=== PATIENT | female | born 1940 | race Caucasian/White ===

== ENCOUNTER → 2018-02-02 12:13 | Outpatient (CLI) | payer MEDICARE, OTHER, SELFPAY ==
--- NOTE | 2018-02-02 12:22 | DI.MG.S_ITS ---
BILATERAL DIGITAL SCREENING MAMMOGRAM 3D/2D WITH CAD: 02/02/2018 CLINICAL: Routine screening. Comparison is made to exams dated: 09/30/2016 mammogram, 02/27/2015 mammogram, and 06/22/2013 mammogram - [facility]. There are scattered fibroglandular elements in both breasts. Current study was also evaluated with a Computer Aided Detection (CAD) system. No significant masses, calcifications, or other findings are seen in either breast. There has been no significant interval change. IMPRESSION: NEGATIVE There is no mammographic evidence of malignancy. A 1 year screening mammogram is recommended. This exam was interpreted at Station ID: [id number]. NOTE: For mammograms, a report in lay terms will be sent to the patient. Approximately 15% of breast malignancies will not be visualized mammographically. In the management of a palpable breast mass, a negative mammogram must not discourage biopsy of a clinically suspicious lesion. Electronically Signed By: Richard sanon/sia:02/02/2018 16:50:26 letter sent: Normal Exam ACR BI-RADS Category 1: Negative 3341F
== END ==
PROVIDERS: PCP Family Medicine; Visit Provider Family Medicine
DX: Z12.31 Encounter for screening mammogram for malignant neoplasm of breast (principal)
CPT/HCPCS: 77063; 77067

== ENCOUNTER → 2019-02-23 09:40 | Outpatient (CLI) | payer MEDICARE, OTHER, SELFPAY ==
--- NOTE | 2019-02-23 | DI.MG.S_ITS ---
BILATERAL DIGITAL SCREENING MAMMOGRAM 3D/2D WITH CAD: 02/23/2019 CLINICAL: Routine screening. Comparison is made to exams dated: 02/02/2018 mammogram - [facility], 09/30/2016 mammogram, and 02/27/2015 mammogram - [facility]. There are scattered fibroglandular elements in both breasts. Current study was also evaluated with a Computer Aided Detection (CAD) system. There is a stable oval circumscribed mass in the right breast near central to the nipple middle depth that is stable on multiple prior comparison exams dating back to at least 02/27/2015, consistent with benignity. There also are benign vascular calcifications in both breasts. There are mole markers on both breasts. No significant masses, calcifications, or other findings are seen in either breast. There has been no significant interval change. IMPRESSION: There is no mammographic evidence of malignancy. A 1 year screening mammogram is recommended. This exam was interpreted at Station ID: [id number]. NOTE: For mammograms, a report in lay terms will be sent to the patient. Approximately 15% of breast malignancies will not be visualized mammographically. In the management of a palpable breast mass, a negative mammogram must not discourage biopsy of a clinically suspicious lesion. Electronically Signed By: Yoel Villarreal M.D. ecl/:02/23/2019 18:03:39 letter sent: Normal Exam ACR BI-RADS Category 2: Benign Finding(s) 3342F
== END ==
PROVIDERS: PCP Family Medicine; Visit Provider Family Medicine
DX: Z12.31 Encounter for screening mammogram for malignant neoplasm of breast (principal)
CPT/HCPCS: 77063; 77067

== ENCOUNTER → 2020-03-07 12:24 | Outpatient (CLI) | payer MEDICARE, OTHER, SELFPAY ==
--- NOTE | 2020-03-07 | DI.MG.S_ITS ---
BILATERAL DIGITAL SCREENING MAMMOGRAM 3D/2D WITH CAD: 03/07/2020 CLINICAL: Routine screening. Comparison is made to exams dated: 02/23/2019 mammogram, 02/02/2018 mammogram - [facility], 09/30/2016 mammogram, 06/13/2013 mammogram, and 02/27/2015 mammogram - [facility]. There are scattered fibroglandular elements in both breasts. Current study was also evaluated with a Computer Aided Detection (CAD) system. There is a benign mass in the right breast. There also are benign vascular calcifications in both breasts. There are mole markers on both breasts. No significant masses, calcifications, or other findings are seen in either breast. There has been no significant interval change. IMPRESSION: There is no mammographic evidence of malignancy. A 1 year screening mammogram is recommended. This exam was interpreted at Station ID: [id number]. NOTE: For mammograms, a report in lay terms will be sent to the patient. Approximately 15% of breast malignancies will not be visualized mammographically. In the management of a palpable breast mass, a negative mammogram must not discourage biopsy of a clinically suspicious lesion. Electronically Signed By: Martin dempsey/sia:03/07/2020 12:52:25 letter sent: Normal Exam ACR BI-RADS Category 2: Benign Finding(s) 3342F
== END ==
PROVIDERS: PCP Family Medicine; Referring Provider Family Medicine; Visit Provider Family Medicine
DX: Z12.31 Encounter for screening mammogram for malignant neoplasm of breast (principal)
CPT/HCPCS: 77063; 77067

== ENCOUNTER → 2021-03-13 10:59 | Outpatient (CLI) | payer MEDICARE, OTHER, SELFPAY ==
--- NOTE | 2021-03-13 | DI.MG.S_ITS ---
BILATERAL DIGITAL SCREENING MAMMOGRAM 3D/2D WITH CAD: 03/13/2021 CLINICAL: Routine screening. Comparison is made to exams dated: 03/07/2020 mammogram, 02/23/2019 mammogram, and 02/02/2018 mammogram - [facility]. There are scattered fibroglandular elements in both breasts. Current study was also evaluated with a Computer Aided Detection (CAD) system. There is a benign mass in the right breast. There also are benign vascular calcifications in both breasts. There are mole markers on both breasts. No significant masses, calcifications, or other findings are seen in either breast. There has been no significant interval change. IMPRESSION: BENIGN There is no mammographic evidence of malignancy. A 1 year screening mammogram is recommended. This exam was interpreted at Station ID: [id number]. NOTE: For mammograms, a report in lay terms will be sent to the patient. Approximately 15% of breast malignancies will not be visualized mammographically. In the management of a palpable breast mass, a negative mammogram must not discourage biopsy of a clinically suspicious lesion. Electronically Signed By: Vern Casillas M.D., jr/sia:03/13/2021 11:45:52 letter sent: Normal Exam ACR BI-RADS Category 2: Benign Finding(s) 3342F
== END ==
PROVIDERS: PCP Family Medicine; Referring Provider Family Medicine; Visit Provider Family Medicine
DX: Z12.31 Encounter for screening mammogram for malignant neoplasm of breast (principal)
CPT/HCPCS: 77063; 77067

== ENCOUNTER → 2022-04-08 13:07 | Outpatient (CLI) | payer MEDICARE, OTHER, SELFPAY ==
--- NOTE | 2022-04-08 | DI.MG.S_ITS ---
BILATERAL DIGITAL SCREENING MAMMOGRAM 3D/2D WITH CAD: 04/08/2022 CLINICAL: Routine screening. Comparison is made to exams dated: 03/13/2021 mammogram, 03/07/2020 mammogram, and 02/23/2019 mammogram - [facility]. There are scattered fibroglandular elements in both breasts. Current study was also evaluated with a Computer Aided Detection (CAD) system. There is a benign mass in the right breast. There also are benign vascular calcifications in both breasts. There are mole markers on both breasts. No significant masses, calcifications, or other findings are seen in either breast. There has been no significant interval change. IMPRESSION: BENIGN There is no mammographic evidence of malignancy. A 1 year screening mammogram is recommended. Based on the Tyrer Cuzick model (a risk assessment model) the patient's lifetime risk is 2.0% and her 10 year risk is 0.0%. According to the ACR, ACS, and NCCN guidelines, an annual breast MRI exam along with mammogram is recommended if the patient's lifetime risk is 20% or greater. This exam was interpreted at Station ID: [id number]. NOTE: For mammograms, a report in lay terms will be sent to the patient. Approximately 15% of breast malignancies will not be visualized mammographically. In the management of a palpable breast mass, a negative mammogram must not discourage biopsy of a clinically suspicious lesion. Electronically Signed By: Vern Casillas M.D., jr/sia:04/08/2022 15:19:16 letter sent: Normal Exam ACR BI-RADS Category 2: Benign Finding(s) 3342F
== END ==
PROVIDERS: PCP Nurse Practitioner Family; Referring Provider Nurse Practitioner Family; Visit Provider Family Medicine
DX: Z12.31 Encounter for screening mammogram for malignant neoplasm of breast (principal)
CPT/HCPCS: 77063; 77067

== ENCOUNTER 2022-07-13 18:09 | Inpatient (IN) | payer MEDICARE, OTHER, SELFPAY ==
[2022-07-13] VITALS (12 sets, daily range): BP systolic 175–209; BP diastolic 79–90; PULSE 57–95; RESP 14–22; TEMP 36.6–36.7; O2SAT 95–99; BMI 28.0; BMI 26.6
--- NOTE | 2022-07-13 18:26 | DI.RAD.S_ITS ---
PROCEDURE: XR HIP W PEL IF DONE RT 2V INDICATIONS: fall with pain TECHNIQUE: AP pelvis with lateral view(s) of the right hip(s). COMPARISON: None. FINDINGS: Bones: Lucency at the right femoral neck. No dislocations. Advanced degenerative change at both hips. Pelvic ring appears intact. No suspicious bony lesions. Degenerative change at the lumbar spine and pubic symphysis. Soft tissues: The visualized bowel gas pattern is normal. No suspicious soft tissue calcifications. Generator device at the right buttocks. IMPRESSION: Right femoral neck fracture. Dictated by: Martin Lindsey M.D. on 07/13/2022 at 19:35 Approved by: Martin Lindsey M.D. on 07/13/2022 at 19:37
[2022-07-13] MEDS: MORPHINE 4 MG/ML INJ IV (18:40)
--- NOTE | 2022-07-13 18:57 | PC.NURSE ---
left ac US guided iv placed by Palak brewer, labs drawn, secured with dsg.
--- NOTE | 2022-07-13 19:16 | PC.NURSE ---
urine collected and sent to lab with casanova catheter placement labs and blood banding done with us guided iv rapid covid swab collected and sent to lab all to be available pending md assessment and xray results.
[2022-07-13 19:26] LABS: BUN Creatinine Ratio 26.3 (6-22); Blood Urea Nitrogen 75 mg/dL (7-17); Calcium 8.5 mg/dL (8.4-10.2); Carbon Dioxide 28 mmol/L (22-32); Chloride 95 mmol/L (98-107); Estimated Glomerular Filt Rate 16 mL/min (>60); Glucose 123 mg/dL (80-110); HEMOLYSIS < 15 (0-50); Potassium 4.2 mmol/L (3.4-5.1); Sodium 135 mmol/L (137-145)
[2022-07-13 19:27] LABS: Add Manual Diff / Slide Review NO; Basophils Absolute Auto 0 /uL (0-100); Basophils Percent Auto 0.2 % (0-2); Eosinophils Absolute Auto 200 /uL (0-450); Eosinophils Percent Auto 4.8 % (2-4); Hematocrit 33.1 % (36-46); Hemoglobin 11.4 g/dL (12.0-16.0); Lymphocytes Absolute Auto 600 /uL (1100-4500); Lymphocytes Percent Auto 14.2 % (25-40); Mean Corpuscular HGB Conc 34.3 % (30-36); Mean Corpuscular Hemoglobin 30.8 PG (26-34); Mean Corpuscular Volume 89.9 fL (80-100); Monocytes Absolute Auto 400 /uL (0-900); Monocytes Percent Auto 8.8 % (3-14); Neutrophils Absolute Auto 3200 /uL (1500-7000); Platelet Count 164 X10^3/uL (150-400); Red Blood Cell Count 3.69 X10^6/uL (4.0-5.2); Red Cell Distribution Width 12.7 % (11.6-14.8); White Blood Cell Count 4.5 X10^3/uL (4.5-11.0)
[2022-07-13] MEDS: diazePAM 10 MG/2 ML SYRINGE 2 MG IV (19:38)
[2022-07-13] MEDS: SODIUM CHLORIDE 0.9% 1,000 ML 100 ML IV (19:38)
--- NOTE | 2022-07-13 19:50 | ED.GENADULT ---
HPI - General Adult General Chief complaint: Trauma Stated complaint: GLF- ? right hip fx Time Seen by Provider: 07/13/22 18:26 Source: patient and EMS Mode of arrival: EMS Limitations: no limitations History of Present Illness HPI narrative: 81-year-old female brought in by EMS for evaluation of right hip pain. Earlier today she fell landing on her right hip. She reports right hip and right knee pain. Did not hit her head. This was a mechanical fall. Not on anticoagulation. Was unable to get up afterwards. EMS was called. She does live on [address]. She arrived by air ambulance. She received intranasal fentanyl secondary to inability to start an IV. Related Data Home Medications Medication Instructions Recorded Confirmed allopurinol 100 mg tablet 100 mg PO DAILY 07/13/22 07/13/22 brimonidine 0.2 % eye drops 1 drp EYE-BOTH BID 07/13/22 07/13/22 calcitriol 0.25 mcg capsule 0.25 mcg PO DAILY 07/13/22 07/13/22 carvedilol 25 mg tablet 25 mg PO BID 07/13/22 07/13/22 dorzolamide 2 % eye drops 1 drp EYE-BOTH BID 07/13/22 07/13/22 furosemide 20 mg tablet 40 mg PO DAILY 07/13/22 07/13/22 latanoprost 0.005 % eye drops 1 drp EYE-BOTH BEDTIME 07/13/22 07/13/22 loperamide 2 mg capsule 2 mg PO Q6H PRN Diarrhea 07/13/22 07/13/22 losartan 50 mg tablet 50 mg PO DAILY 07/13/22 07/13/22 simvastatin 40 mg tablet 40 mg PO DAILY 07/13/22 07/13/22 sitagliptin 25 mg tablet (Januvia) 25 mg PO DAILY 07/13/22 07/13/22 Allergies Allergy/AdvReac Type Severity Reaction Status Date / Time Penicillins Allergy Verified 07/13/22 18:49 Sulfa (Sulfonamide Allergy rash Verified 11/16/18 14:35 Antibiotics) vancomycin Allergy Hives Verified 07/13/22 21:59 Review of Systems Constitutional Constitutional: Reports system reviewed and no additional complaints, except as documented Cardiovascular Comments: Denies chest pain Respiratory Comments: Denies shortness of breath Gastrointestinal Comments: Denies abdominal pain Musculoskeletal Comments: Right hip pain right knee pain Neurologic Comments: No headache Hematologic/Lymphatic On Anticoagulants: No Patient History Medical History (Updated 07/13/22 @ 23:16 by Feliciano Shepard DO) Chronic kidney disease Diabetes Sleep apnea Social History household members: none Smoking Status: Never smoker alcohol intake: never Smoking Status: Never smoker Substance Use Type: does not use Exam Initial Vital Signs Initial Vital Signs: Vital Signs Temperature 98 F 07/13/22 18:10 Pulse Rate 60 07/13/22 18:10 Respiratory Rate 18 07/13/22 18:10 Blood Pressure 177/88 H 07/13/22 18:10 Pulse Oximetry 97 07/13/22 18:10 Oxygen Delivery Method 07/13/22 18:10 Const General: cooperative and No ill appearing HENMT Head: normal to inspection and normocephalic Resp Effort & Inspection: normal respiratory effort Auscultation: clear to auscultation bilaterally Cardio Rate: regular rate Rhythm: regular rhythm GI Inspection: normal to inspection Palpation: soft, No firm and No tender Back/Spine/Pelvis Cervical Spine: No cervical spinal tenderness Skin General: no rashes or lesions noted Neuro General: patient alert and patient awake Sensory Exam: no sensory deficits noted Extrem Other: Upper extremities are unremarkable. Does have tenderness to palpation of the right hemipelvis and also tenderness to palpation and movement of the right knee. Left lower extremity unremarkable. Right ankle is unremarkable. Scores GCS [place] coma scale eye opening: Spontaneous [place] coma scale verbal response: Orientated [place] coma scale motor response: Obey commands [place] coma scale total score: 15 Nexus Score for C-Spine Focal Neurologic deficit present: No Midline spinal tenderness present: No Altered level of conciousness present: No Intoxication present: No Distracting Injury Present: No Nexus Criteria for C-spine: 0 Course Orders Ordered: ED Orders 07/13/22 18:14 COVID19 -Nasal RAPID/Pre-Proc Stat 07/13/22 18:26 XR hip w pel if done RT 2V Stat 07/13/22 18:27 Basic Metabolic Panel Stat Complete Blood Count AUTO DIFF Stat 07/13/22 19:51 XR knee RT 1to2V Stat 07/13/22 20:45 Consult to Orthopedic Surgery Stat Acetaminophen (Acetaminophen 325 Mg Tablet) 650 mg PO Q6H PRN PRN Reason: Fever/Mild Pain (1-3) Dextrose (Dextrose 50 % In Water 25 Gm/50 Ml Syringe) 25 gm IV PRN PRN PRN Reason: Hypoglycemia Diclofenac Sodium (Diclofenac 1% Gel 100 Gm) 1 applic TOP QID PRN PRN Reason: Pain, Mild (1-10 Sodium Chloride (Normal Saline 0.9%) 1,000 mls @ 100 mls/hr IV CONT [facility] Last Infusion: 07/13/22 22:08 Dose: 0 mls/hr Documented By: Infusion: 07/13/22 21:53 Dose: 100 mls/hr Documented By: Infusion: 07/13/22 21:34 Dose: 0 mls/hr Documented By: Admin: 07/13/22 19:38 Dose: 100 mls/hr Documented By: AP Dextrose/Sodium Chloride (Dextrose 5%-0.9% Ns) 1,000 mls @ 80 mls/hr IV CONT [facility] Last Admin: 07/13/22 22:07 Dose: 80 mls/hr Documented By: OW Insulin Human Lispro (Insulin Lispro 100 Unit/Ml 3ml Vial) 0 unit SUBCUT ACHS [facility]; Protocol Lidocaine (Lidocaine Patch 1 Each Adh..Patch) 1 each TOP DAILY PRN PRN Reason: Pain, Mild (1-10 Morphine Sulfate (Morphine 2 Mg/Ml Inj) 2 mg IV Q4HR PRN PRN Reason: Pain, Moderate (4-)10 Last Admin: 07/13/22 22:07 Dose: 2 mg Documented By: OW Naloxone HCl (Naloxone 0.4 Mg/Ml Vial) 0.2 mg IV Q2MIN PRN PRN Reason: Opiate Reversal Non-Formulary Medication (Carvedilol) 12.5 mg PO DAILY [facility] Non-Formulary Medication (Losartan) 50 mg PO DAILY [facility] Ondansetron HCl (Ondansetron 4 Mg/2 Ml Inj) 4 mg IV Q6HR PRN PRN Reason: Nausea And Vomiting Sennosides (Sennosides 8.6 Mg Tablet) 17.2 mg PO BEDTIME [facility] Last Admin: 07/13/22 22:07 Dose: 17.2 mg Documented By: OW Discontinued Medications Carvedilol (Carvedilol 12.5 Mg Tablet) 12.5 mg PO NOW ONE Stop: 07/13/22 21:40 Last Admin: 07/13/22 22:06 Dose: 12.5 mg Documented By: JANNET Diazepam (Diazepam 10 Mg/2 Ml Syringe) 2 mg IV NOW ONE Stop: 07/13/22 19:29 Last Admin: 07/13/22 19:38 Dose: 2 mg Documented By: SAMY Morphine Sulfate (Morphine 4 Mg/Ml Inj) 4 mg IV NOW ONE Stop: 07/13/22 18:27 Last Admin: 07/13/22 18:40 Dose: 4 mg Documented By: KENZIE Vital Signs Vital signs: Vital Signs - 8 hr 07/13/22 18:10 07/13/22 18:15 07/13/22 18:18 Temperature 98 F Pulse Rate 60 61 Respiratory Rate 18 14 Blood Pressure 177/88 H 177/88 H Pulse Oximetry 97 Oxygen Delivery Method Room Air 07/13/22 18:18 07/13/22 18:30 07/13/22 18:30 Temperature Pulse Rate 60 58 L Respiratory Rate 20 21 Blood Pressure 188/79 H Pulse Oximetry 97 97 Oxygen Delivery Method 07/13/22 19:10 07/13/22 19:30 07/13/22 20:00 Temperature Pulse Rate 63 57 L 57 L Respiratory Rate 22 20 19 Blood Pressure Pulse Oximetry 98 96 97 Oxygen Delivery Method Room Air 07/13/22 20:16 07/13/22 20:16 07/13/22 20:30 Temperature Pulse Rate 62 Respiratory Rate 22 Blood Pressure 189/86 H 175/84 H Pulse Oximetry 97 Oxygen Delivery Method 07/13/22 20:30 Temperature Pulse Rate 59 L Respiratory Rate 17 Blood Pressure Pulse Oximetry 99 Oxygen Delivery Method Medical Decision Making Lab Data Lab results reviewed: Yes I reviewed the patient's lab results. Result diagrams: 07/13/22 18:27 07/13/22 18:27 Labs: Lab Results 07/13/22 07/13/22 07/13/22 Range/Units 18:14 18:27 18:27 WBC 4.5 (4.5-11.0) X10^3/uL RBC 3.69 L (4.0-5.2) X10^6/uL Hgb 11.4 L (12.0-16.0) g/dL Hct 33.1 L (36-46) % MCV 89.9 (80-100) fL MCH 30.8 (26-34) PG MCHC 34.3 (30-36) % RDW 12.7 (11.6-14.8) % Plt Count 164 (150-400) X10^3/uL Neut % (Auto) 72.0 (50-75) % Lymph % (Auto) 14.2 L (25-40) % [place] % (Auto) 8.8 (3-14) % Eos % (Auto) 4.8 H (2-4) % Baso % (Auto) 0.2 (0-2) % Neut # (Auto) 3200 (1760-8517) /uL Lymph # (Auto) 600 L (8410-6220) /uL [place] # (Auto) 400 (0-900) /uL Eos # (Auto) 200 (0-450) /uL Baso # (Auto) 0 (0-100) /uL Sodium 135 L (137-145) mmol/L Potassium 4.2 (3.4-5.1) mmol/L Chloride 95 L (98-107) mmol/L Carbon Dioxide 28 (22-32) mmol/L BUN 75 H (7-17) mg/dL Creatinine 2.85 H (0.52-1.04) mg/dL Estimated GFR 16 L (>60) mL/min BUN/Creatinine Ratio 26.3 H (6-22) Glucose 123 H (80-110) mg/dL Hemoglobin A1c (4.0-6.0) % Calcium 8.5 (8.4-10.2) mg/dL Magnesium (1.6-2.3) mg/dL SARS-CoV-2 (PCR) Negative (Negative) 07/13/22 07/13/22 Range/Units 18:27 18:27 WBC (4.5-11.0) X10^3/uL RBC (4.0-5.2) X10^6/uL Hgb (12.0-16.0) g/dL Hct (36-46) % MCV (80-100) fL MCH (26-34) PG MCHC (30-36) % RDW (11.6-14.8) % Plt Count (150-400) X10^3/uL Neut % (Auto) (50-75) % Lymph % (Auto) (25-40) % [place] % (Auto) (3-14) % Eos % (Auto) (2-4) % Baso % (Auto) (0-2) % Neut # (Auto) (9115-8162) /uL Lymph # (Auto) (2356-5916) /uL [place] # (Auto) (0-900) /uL Eos # (Auto) (0-450) /uL Baso # (Auto) (0-100) /uL Sodium (137-145) mmol/L Potassium (3.4-5.1) mmol/L Chloride (98-107) mmol/L Carbon Dioxide (22-32) mmol/L BUN (7-17) mg/dL Creatinine (0.52-1.04) mg/dL Estimated GFR (>60) mL/min BUN/Creatinine Ratio (6-22) Glucose (80-110) mg/dL Hemoglobin A1c 7.7 H (4.0-6.0) % Calcium (8.4-10.2) mg/dL Magnesium 2.8 H (1.6-2.3) mg/dL SARS-CoV-2 (PCR) (Negative) Point of Care Testing Glucose POC 125 Point of care testing: Point of Care Testing Glucose POC 125 Imaging Data Extremity x-ray #1: Radiologist's Impression: Radha Earl??81??F??1940 ? Allergy/Adv: Penicillins, Sulfa (Sulfonamide Antibiotics), vancomycin (More??) Close Knee X-Ray (Signed) Haider Redding - 07/13/22 Hip X-Ray (Signed) Call,Martin - 07/13/22 Mammogram Screening (Signed) Vern Casillas - 04/08/22 Mammogram Screening (Signed) Vern Casillas - 03/13/21 Mammogram Screening (Signed) CallMartin - 03/07/20 Mammogram Screening (Signed) Yoel Villarreal - 02/23/19 Mammogram Screening (Signed) John Lopez - 02/02/18 Launch?[address] [address] XRay Report Signed Patient: Radha Earl MR#: [id number] : 1940 Acct:[id number] Age/Sex: 81 / F Date of Service: 07/13/22 Loc: ED Accession Number: [id number] ?? Procedure: XR hip w pel if done RT 2V Ordering Provider: Feliciano Shepard D.O. PROCEDURE:? XR HIP W PEL IF DONE RT 2V ? INDICATIONS:? fall with pain ? TECHNIQUE:? AP pelvis with lateral view(s) of the right hip(s).? ? COMPARISON:? None. ? FINDINGS:? ? Bones:? Lucency at the right femoral neck.? No dislocations.? Advanced degenerative change at both hips.? Pelvic ring appears intact.? No suspicious bony lesions.? Degenerative change at the lumbar spine and pubic symphysis. ? Soft tissues:? The visualized bowel gas pattern is normal.? No suspicious soft tissue calcifications.? Generator device at the right buttocks. ? ? IMPRESSION:? Right femoral neck fracture. ? ? ? Dictated by: Martin Lindsey M.D. on 07/13/2022 at 19:35 ? ? Approved by: Martin Lindsey M.D. on 07/13/2022 at 19:37?? Extremity x-ray #2: Radiologist's Impression: [place] [address] XRay Report Signed Patient: Radha Earl MR#: [id number] : 1940 Acct:[id number] Age/Sex: 81 / F Date of Service: 07/13/22 Loc: 215-1 Accession Number: [id number] ?? Procedure: XR knee RT 1to2V Ordering Provider: Feliciano Shepard D.O. PROCEDURE:? XR KNEE RT 1TO2V ? INDICATIONS:? Two-view right knee, pain after fall ? TECHNIQUE:? 2 views of the knee were acquired.? ? COMPARISON:? None. ? FINDINGS:? ? Bones:? No fractures or dislocations.? There is mild joint space narrowing in the medial compartment.? No suspicious bony lesions.? ? Soft tissues:? No joint effusion.? No suspicious soft tissue calcifications.? ? IMPRESSION:? ? 1. No fracture or dislocation.? ? ? Dictated by: Haider Redding M.D. on 07/13/2022 at 21:54 ? ? Approved by: Haider Redding M.D. on 07/13/2022 at 21:54 MDM Narrative Medical decision making narrative: Mechanical fall, not on anticoagulation. Has a right femoral neck fracture. Her right knee shows no fractures nor dislocations. No other injuries reported from the patient nor found on the exam. Discussed the case with Dr. Lizarraga on-call with orthopedic surgery who will see the patient upon admission. Discussed the admission with ORALIA Silva the [facility] provider. Discussed the need for admission with the patient. She expressed understanding and agreement. Discharge Plan Departure Patient Disposition: Admitted As Inpatient Clinical Impression: Fracture of femoral neck, right, Chronic kidney disease Admit Date/Time: 07/13/22 20:57 Admit Provider: Nidia Silva
--- NOTE | 2022-07-13 19:51 | DI.RAD.S_ITS ---
PROCEDURE: XR KNEE RT 1TO2V INDICATIONS: Two-view right knee, pain after fall TECHNIQUE: 2 views of the knee were acquired. COMPARISON: None. FINDINGS: Bones: No fractures or dislocations. There is mild joint space narrowing in the medial compartment. No suspicious bony lesions. Soft tissues: No joint effusion. No suspicious soft tissue calcifications. IMPRESSION: 1. No fracture or dislocation. Dictated by: Haider Redding M.D. on 07/13/2022 at 21:54 Approved by: Haider Redding M.D. on 07/13/2022 at 21:54
[2022-07-13 20:40] LABS: COVID19 -Nasal RAPID Negative (Negative)
[2022-07-13 21:34] LABS: Magnesium 2.8 mg/dL (1.6-2.3)
[2022-07-13] MEDS: carvediloL 12.5 MG TABLET PO (22:06)
[2022-07-13] MEDS: DEXTROSE 5%-0.9% NS 1,000 ML 80 ML IV (22:07)
[2022-07-13] MEDS: MORPHINE 2 MG/ML INJ IV (22:07)
[2022-07-13] MEDS: SENNOSIDES 8.6 MG TABLET 17.2 MG PO (22:07)
[2022-07-13 22:16] LABS: Hemoglobin A1C% w Est Avg Glu 7.7 % (4.0-6.0)
[2022-07-13 22:38] LABS: Appearance Urine UA CLEAR; Bilirubin Urine UA NEGATIVE (NEGATIVE); Color Urine UA YELLOW; Glucose Urine UA NEGATIVE (Negative); Ketones Urine UA NEGATIVE (NEGATIVE); Leukocyte Esterase Urine UA 2+ (NEGATIVE); Nitrite Urine UA POSITIVE (Negative); Occult Blood Urine UA TRACE-INTACT (Negative); Protein Urine UA 1+ (Negative); Urobilinogen Urine UA 0.2 E.U./dL (0.2)
[2022-07-13 22:54] LABS: Bacteria Urine Many (>30); RBC Urine None Seen (0-5/HPF); WBC Urine 10-30/HPF (0-5/HPF)
[2022-07-13 22:55] LABS: Culture Indicated Urine Specimen Cultured
[2022-07-14] VITALS (20 sets, daily range): BP systolic 121–185; BP diastolic 61–102; PULSE 61–95; RESP 10–20; TEMP 36.2–37.2; O2SAT 93–99; BMI 26.6
--- NOTE | 2022-07-14 | DI.RAD.S_ITS ---
PROCEDURE: XR HIP W PEL IF DONE RT 2V INDICATIONS: OR TECHNIQUE: 2 intraoperative views of the hip were acquired. COMPARISON: [facility], CR, XR HIP W PEL IF DONE RT 2V, 07/13/2022, 18:59. FINDINGS: 3 right femoral neck screws project in the expected location. There is decreased conspicuity of the femoral neck fracture. IMPRESSION: Intraoperative guidance provided. Dictated by: Martin Lindsey M.D. on 07/15/2022 at 8:31 Approved by: Martin Lindsey M.D. on 07/15/2022 at 8:32
[2022-07-14] MEDS: MORPHINE 2 MG/ML INJ IV ×4 (01:00→13:16)
--- NOTE | 2022-07-14 01:02 | P.HP_ITS ---
History of Present Illness History of Present Illness Date Patient Seen: 07/13/22 Time Patient Seen: 21:23 Chief complaint: GLF- ? right hip fx Narrative: Radha Earl is a 81-year-old female with a history of essential hypertension, hypertensive nephrosclerosis, CKD G4/A1, with mineral bone disease, insomnia, iron deficiency anemia of CKD, hyperuremicemia, ZINA with CPAP, history of MRSA, bowel incontinence with InterStim neurostimulator implanted, who presented to the ED today after getting up out of a chair finding that her legs had fallen asleep and collapsed to the floor falling impacting her right knee and hip resulting in a right femoral neck fracture. Patient is on no anticoagulation therapy. Patient denies hitting her head or loss of consciousness with fall, headache, changes in vision, weakness, numbness, tingling, chest pain, shortness breath, abdominal pain, nausea, vomiting, fever, body aches, chills, urinary frequency, urgency, dysuria, frequent falls, skin wounds or infections, recent changes to her medication, recent illness injury or trauma that otherwise stated above. Admit vitals temp 98?, BP 189/86, HR 62, R 22, O2 saturation 97% on room air. Patient HGB 11.4, HCT 33.1, sodium 135, chloride 95, BUN 75, creatinine 2.85, g lucose 123, GFR 16, (review of nephrology notes show baseline creatinine 2.34, GFR 19), patient's liver panel WNL, COVID is negative, right knee x-ray is negative for any acute processes or fracture, right hip x-ray demonstrates right femoral neck fracture. Dr. Lizarraga was consulted in ED. Patient admitted for right femoral neck fracture. Patient History Medical History (Updated 07/14/22 @ 01:14 by ALEXIS Huff) Anemia in CKD (chronic kidney disease) Chronic kidney disease Chronic kidney disease (CKD) stage G4/A1, severely decreased glomerular filtration rate (GFR) between 15-29 mL/min/1.73 square meter and albuminuria creatinine ratio less than 30 mg/g Diabetes Essential hypertension Gastric neurostimulator device in situ Hearing aid worn History of MRSA infection Hypertensive nephrosclerosis Hyperuricemia Insomnia Iron deficiency anemia Obstructive sleep apnea on CPAP Sleep apnea Surgical History History of colon surgery History of myringotomy History of tonsillectomy Family & Social History Family History Father CKD (chronic kidney disease) Mother Hypertension Social History: household members none lives alone & is retired Prior Living Arrangements Apartment/Condo Safety & Behavioral: Feels Safe in Current Yes Environment Been Physically Hurt or No Threatened By a Person Tobacco & Substance use: Smoking Status Never smoker alcohol intake never Substance Use Type does not use Meds Home Medications and Allergies Home Medications Medication Instructions Recorded Confirmed Type allopurinol 100 mg tablet 100 mg PO DAILY 07/13/22 07/13/22 History brimonidine 0.2 % eye drops 1 drp EYE-BOTH BID 07/13/22 07/13/22 History calcitriol 0.25 mcg capsule 0.25 mcg PO DAILY 07/13/22 07/13/22 History carvedilol 25 mg tablet 25 mg PO BID 07/13/22 07/13/22 History dorzolamide 2 % eye drops 1 drp EYE-BOTH BID 07/13/22 07/13/22 History furosemide 20 mg tablet 40 mg PO DAILY 07/13/22 07/13/22 History latanoprost 0.005 % eye drops 1 drp EYE-BOTH BEDTIME 07/13/22 07/13/22 History loperamide 2 mg capsule 2 mg PO Q6H PRN Diarrhea 07/13/22 07/13/22 History losartan 50 mg tablet 50 mg PO DAILY 07/13/22 07/13/22 History simvastatin 40 mg tablet 40 mg PO DAILY 07/13/22 07/13/22 History sitagliptin 25 mg tablet (Januvia) 25 mg PO DAILY 07/13/22 07/13/22 History Allergies Allergy/AdvReac Type Severity Reaction Status Date / Time Penicillins Allergy Verified 07/13/22 18:49 Sulfa (Sulfonamide Allergy rash Verified 11/16/18 14:35 Antibiotics) vancomycin Allergy Hives Verified 07/13/22 21:59 Review of Systems Review of Systems Narrative: All 12 point systems reviewed with the patient and are negative except otherwise documented. Exam Vital Signs (past 8 hours): - 07/13/22 18:10 07/13/22 18:15 07/13/22 18:18 Temperature 98 F Pulse Rate 60 61 Respiratory Rate 18 14 Blood Pressure 177/88 H 177/88 H Pulse Oximetry 97 Oxygen Delivery Method Room Air Oxygen Flow Rate 07/13/22 18:18 07/13/22 18:30 07/13/22 18:30 Temperature Pulse Rate 60 58 L Respiratory Rate 20 21 Blood Pressure 188/79 H Pulse Oximetry 97 97 Oxygen Delivery Method Oxygen Flow Rate 07/13/22 19:10 07/13/22 19:30 07/13/22 20:00 Temperature Pulse Rate 63 57 L 57 L Respiratory Rate 22 20 19 Blood Pressure Pulse Oximetry 98 96 97 Oxygen Delivery Method Room Air Oxygen Flow Rate 07/13/22 20:16 07/13/22 20:16 07/13/22 20:30 Temperature Pulse Rate 62 Respiratory Rate 22 Blood Pressure 189/86 H 175/84 H Pulse Oximetry 97 Oxygen Delivery Method Oxygen Flow Rate 07/13/22 20:30 07/13/22 21:00 07/13/22 21:00 Temperature Pulse Rate 59 L 61 Respiratory Rate 17 15 Blood Pressure 209/90 H Pulse Oximetry 99 95 Oxygen Delivery Method Oxygen Flow Rate 07/13/22 21:35 07/13/22 22:06 07/13/22 21:30 Temperature 98.1 F Pulse Rate 71 95 H Respiratory Rate 18 Blood Pressure 183/85 H 183/85 H Pulse Oximetry 95 Oxygen Delivery Method Room Air Oxygen Flow Rate 0 Oxygen Delivery Method Room Air Oxygen Flow Rate 0 Narrative Exam Narrative: General: Patient is a well-developed, well-nourished elderly female in no distress at this time.pain well controlled. HEENT: Normocephalic, atraumatic, extraocular muscles intact, oral pharynx is clear and mucous membranes are moist. Neck is supple and symmetric, trachea is midline, no adenopathy, no thyroid enlargement, nontender, no masses palpated. Negative for JVD Chest: Normal AP diameter and contour without kyphoscoliosis, no nasal flaring, retractions, or tachypneic labored Lungs: Auscultation of all lung lombardo are clear without adventitious sounds, wheezes, rhonchi, or rales. Cardio: S1 & S2 with regular rate and rhythm without murmur, rubs, or gallops, no carotid bruit, no cardiac pulsations present. Abdomen: Soft nontender, negative for organomegaly, or masses. Bowel sounds are present in all 4 quadrants without guarding or rebound, no CVA tenderness. Musculoskeletal: Left leg appears longer than right, No effusions, cyanosis, clubbing or edema present. intact radial and pedal pulses are normal. Skin: Warm dry and intact without rashes, ulcerations or petechiae. Neuro: Alert and orientated x3, strength is +5/5 in all extremities, sensation to touch intact, no gross deficits noted of cranial nerves. Psych: Patient has a well-kept appearance, appropriate affect, mental status attitude thought context and judgment are appropriate for age. Objective Labs Result Diagrams: 07/13/22 18:27 07/13/22 18:27 Labs: Laboratory Results - last 24 hr 07/13/22 07/13/22 07/13/22 18: 18:27 18:27 WBC 4.5 RBC 3.69 L Hgb 11.4 L Hct 33.1 L MCV 89.9 MCH 30.8 MCHC 34.3 RDW 12.7 Plt Count 164 Neut % (Auto) 72.0 Lymph % (Auto) 14.2 L [place] % (Auto) 8.8 Eos % (Auto) 4.8 H Baso % (Auto) 0.2 Neut # (Auto) 3200 Lymph # (Auto) 600 L [place] # (Auto) 400 Eos # (Auto) 200 Baso # (Auto) 0 Sodium 135 L Potassium 4.2 Chloride 95 L Carbon Dioxide 28 BUN 75 H Creatinine 2.85 H Estimated GFR 16 L BUN/Creatinine Ratio 26.3 H Glucose 123 H Hemoglobin A1c Calcium 8.5 Magnesium Urine Color Urine Appearance Urine pH Ur Specific [place] Urine Protein Urine Glucose (UA) Urine Ketones Urine Occult Blood Urine Nitrate Urine Bilirubin Urine Urobilinogen Ur Leukocyte Esterase Urine RBC Urine WBC Urine Bacteria Ur Culture Indicated? Nasal Screen MRSA (PCR) SARS-CoV-2 (PCR) Negative 07/13/22 07/13/22 07/13/22 18: 18:27 21:55 WBC RBC Hgb Hct MCV MCH MCHC RDW Plt Count Neut % (Auto) Lymph % (Auto) [place] % (Auto) Eos % (Auto) Baso % (Auto) Neut # (Auto) Lymph # (Auto) [place] # (Auto) Eos # (Auto) Baso # (Auto) Sodium Potassium Chloride Carbon Dioxide BUN Creatinine Estimated GFR BUN/Creatinine Ratio Glucose Hemoglobin A1c 7.7 H Calcium Magnesium 2.8 H Urine Color Yellow Urine Appearance Clear Urine pH 6.0 Ur Specific [place] 1.010 Urine Protein 1+ H Urine Glucose (UA) Negative Urine Ketones Negative Urine Occult Blood Trace-intact Urine Nitrate Positive H Urine Bilirubin Negative Urine Urobilinogen 0.2 Ur Leukocyte Esterase 2+ H Urine RBC None seen Urine WBC 10-30/hpf H Urine Bacteria Many (>30) H Ur Culture Indicated? Specimen cultured Nasal Screen MRSA (PCR) SARS-CoV-2 (PCR) 07/13/22 22:20 WBC RBC Hgb Hct MCV MCH MCHC RDW Plt Count Neut % (Auto) Lymph % (Auto) [place] % (Auto) Eos % (Auto) Baso % (Auto) Neut # (Auto) Lymph # (Auto) [place] # (Auto) Eos # (Auto) Baso # (Auto) Sodium Potassium Chloride Carbon Dioxide BUN Creatinine Estimated GFR BUN/Creatinine Ratio Glucose Hemoglobin A1c Calcium Magnesium Urine Color Urine Appearance Urine pH Ur Specific [place] Urine Protein Urine Glucose (UA) Urine Ketones Urine Occult Blood Urine Nitrate Urine Bilirubin Urine Urobilinogen Ur Leukocyte Esterase Urine RBC Urine WBC Urine Bacteria Ur Culture Indicated? Nasal Screen MRSA (PCR) Positive for mrsa H SARS-CoV-2 (PCR) Assessment & Plan Assessment & Plan narrative: Radha Earl is a 81-year-old female with a history of essential hypertension, hypertensive nephrosclerosis, CKD G4/A1, with mineral bone disease, insomnia, iron deficiency anemia of CKD, hyperuremicemia, ZINA with CPAP, history of MRSA, bowel incontinence with InterStim neurostimulator implanted. This patient re quires inpatient hospitalization for a right femoral neck fracture, following a ground level fall requiring surgical intervention. Consult Dr. Gramajo Nephrology tomorrow to evaluate patient's renal function in regards to fitness for surgical intervention, as we have no dialysis capabilities here at [facility] if required. The patient is at much higher risk for medical and surgical complications because of her complex medical history listed above. These factors increase the difficulty and complexity of medical and surgical interventions and increases the chances of poor outcomes such as morbidity and mortality, as well as complications such as renal failure requiring dialysis. 1. Ground level fall resulting in a pathologic right femoral neck fracture, acute, present on admission -Right knee x-ray is negative -Right hip x-ray demonstrates right femoral neck fracture -patient has mineral bone disease secondary to CKD G4/A1 -NPO after midnight-with the exception patient may take her blood pressure medications in the morning with a sip of water. -pain control: IV morphine, ice, Voltaren, lidocaine patch as needed -D5 normal saline at 80 cc/HR -blood sugar checks q.6 hours while NPO -MRSA ordered -Hx of MRSA -Consult Dr. Lizarraga & Dr. Gramajo neph 2. Essential hypertension, uncontrolled, acute on chronic, in the setting of hypertensive nephrosclerosis and DONNIE, chronic, present on admission -admitBP 189/86 -continue carvedilol, losartan -hold Lasix 3. Iron-deficiency anemia of CKD, acute on chronic, present on admission -HGB 11.4, HCT 33.1-trend hematology labs, monitor for bleeding -per nephrology notes baseline hemoglobin 11 -Hold ferrous sulfate 4.Chronic kidney disease G4/A1 with mineral bone disease, chronic, present on admission -sodium 135, chloride 95, BUN 75, creatinine 2.85, glucose 123, GFR 16, Mag 2.8 -review of nephrology notes show baseline creatinine 2.34, GFR 19 -avoid nephrotoxic medications -gentle rehydration D5 NS at 80 cc/HR -after thoroughly reviewing patient's medical history, and reviewing additional labs, I have concerns as to her renal fitness for surgical intervention here at [facility] where we do not have dialysis available if needed. Due to the patients already severe kidney impairment secondary to CKD-her kidney function today is just below her baseline :BUN 75, creatinine 2.85 GFR 16, and her magnesium came back at 2.8. Patients with advanced CKD and GFR< 15 may require dialysis. I am hoping that overnight gentle hydration will at the very least improve her function to baseline, but I have placed a consult with Dr. Gramajo Nephrology-to have him determine if she is cleared to have fracture repair surgery here or if she needs to be moved to a facility with dialysis capabilities. 5. Obstructive sleep apnea with CPAP, chronic, present on admission -respiratory consult, to administer CPAP 6. Hyperuremicemia, chronic, present on admission -holding allopurinol 7. Bowel incontinence, with gastro neurostimulator in place, chronic, present on admission -Holding loperamide 8. [id number] type 2 diabetes, chronic, with hyperlipidemia, chronic, present on admission -patient admitted under diabetic protocol, monitor for hypo and hyperglycemia -low-dose sliding scale, Q 6 VS checks while NPO -post surgery resume a.c. HS, low-dose sliding scale -ordered A1c -holding patient's Januvia -hold simvastatin 9. UTI, acute, present on admission -obtain Bld cultures x2 before starting rocephin -[id number] loading dose then q24HR -Urine cultures pending -D5NS@80cc/hr Code status:Full Surrogate decision maker: Adry Floyd Daughter COVID PCR:Negative DVT/VTE prophylaxis:Hold medication due to surgery, SCD Left Only Disposition: I have utilized all available immediate resources to obtain, update, or review the patient's current medications. I confirmed that the patient's advanced care plan is present, Code status is documented and/or surrogate decision maker is listed in the patient's medical record. I have personally reviewed patient's chart notes from PCP, specialists, [facility], and laboratory, Time Spent With Patient Critical Care time: I spent a total of [] minutes of critical care time on this patient's care today; this time is exclusive of procedural time. Quality VTE Deep Vein Thrombosis/Pulmonary Embolism Present on Admission: No
[2022-07-14] MEDS: cefTRIAXone 2,000 MG in SODIUM CHLORIDE 0.9% 100 ML 200 MG IV (04:10)
--- NOTE | 2022-07-14 04:22 | PC.NURSE ---
Pt is AxOx4, calm and cooperative. Pt admitted to the unit from ER around 2129 with R femur fx. VSS, pt c/o pain and recieved PRN IV Morphine Q4hrs and last one given around 0500. Pt is MRSA positive so contacted precaution initiated. BG-125/195 and pt has D5NS is running 84 ml/hr. Pt uses cpap at night. Obrien is draining clear and yellow urine. Urine test showed bacteria, nitrated and some protein. No other changes. Pt is NPO since mid-night. Continue monitor.
[2022-07-14 04:23] LABS: Add Manual Diff / Slide Review NO; Basophils Absolute Auto 0 /uL (0-100); Basophils Percent Auto 0.1 % (0-2); Eosinophils Absolute Auto 200 /uL (0-450); Eosinophils Percent Auto 2.9 % (2-4); Hematocrit 31.5 % (36-46); Hemoglobin 10.7 g/dL (12.0-16.0); INR 1.1 (0.9-1.3); Lymphocytes Absolute Auto 500 /uL (1100-4500); Lymphocytes Percent Auto 8.8 % (25-40); Mean Corpuscular HGB Conc 33.8 % (30-36); Mean Corpuscular Hemoglobin 30.7 PG (26-34); Mean Corpuscular Volume 90.7 fL (80-100); Monocytes Absolute Auto 500 /uL (0-900); Monocytes Percent Auto 8.4 % (3-14); Neutrophils Absolute Auto 4500 /uL (1500-7000); Neutrophils Percent Auto 79.8 % (50-75); Platelet Count 143 X10^3/uL (150-400); Prothrombin Time 13.1 SECONDS (10.1-12.7); Red Blood Cell Count 3.47 X10^6/uL (4.0-5.2); Red Cell Distribution Width 12.8 % (11.6-14.8); White Blood Cell Count 5.7 X10^3/uL (4.5-11.0)
[2022-07-14 04:28] LABS: Alanine Aminotransferase 32 IU/L (<35); Albumin 3.8 g/dL (3.5-5.0); Albumin Globulin Ratio 1.4 (1.0-2.8); Alkaline Phosphatase 82 U/L (38-126); Aspartate Aminotransferase 31 IU/L (14-36); BUN Creatinine Ratio 26.1 (6-22); Bilirubin Total 0.4 mg/dL (0.2-1.3); Blood Urea Nitrogen 66 mg/dL (7-17); Calcium 8.3 mg/dL (8.4-10.2); Carbon Dioxide 28 mmol/L (22-32); Chloride 100 mmol/L (98-107); Estimated Glomerular Filt Rate 19 mL/min (>60); Globulin 2.7 g/dL (1.7-4.1); Glucose 180 mg/dL (80-110); HEMOLYSIS < 15 (0-50); Magnesium 2.4 mg/dL (1.6-2.3); Potassium 4.2 mmol/L (3.4-5.1); Sodium 137 mmol/L (137-145); Total Protein 6.5 g/dL (6.3-8.2)
--- NOTE | 2022-07-14 08:11 | P.PN_ITS ---
Subjective Subjective Interval history: Pain is ok at rest. Awaiting hip repair surgery. Daughter and pulverizer at bedside. Exam Vital Signs (past 8 hours): - 07/14/22 02:00 07/14/22 06:15 Temperature 98.1 F 97.3 F L Pulse Rate 62 63 Respiratory Rate 19 18 Blood Pressure 121/66 152/61 H Pulse Oximetry 99 97 Oxygen Flow Rate 0 0 Oxygen Delivery Method Room Air Oxygen Flow Rate 0 Narrative Exam Narrative: General: Patient is a well-developed, well-nourished elderly female in no distress at this time. pain well controlled. HEENT: Normocephalic, atraumatic, extraocular muscles intact, oral pharynx is clear and mucous membranes are moist. Neck is supple and symmetric, trachea is midline, no adenopathy, no thyroid enlargement, nontender, no masses palpated. Negative for JVD Chest: Normal AP diameter and contour without kyphoscoliosis, no nasal flaring, retractions, or tachypneic labored Lungs: Auscultation of all lung lombardo are clear without adventitious sounds, wheezes, rhonchi, or rales. Cardio: S1 & S2 with regular rate and rhythm without murmur, rubs, or gallops, no carotid bruit, no cardiac pulsations present. Abdomen: Soft nontender, negative for organomegaly, or masses. Bowel sounds are present in all 4 quadrants without guarding or rebound, no CVA tenderness. Musculoskeletal: Left leg appears longer than right, No effusions, cyanosis, clubbing or edema present. intact radial and pedal pulses are normal. Skin: Warm dry and intact without rashes, ulcerations or petechiae. Neuro: Alert and orientated x3, strength is +5/5 in all extremities, sensation to touch intact, no gross deficits noted of cranial nerves. Psych: Patient has a well-kept appearance, appropriate affect, mental status attitude thought context and judgment are appropriate for age. Objective Labs Result Diagrams: 07/14/22 04:00 07/14/22 04:00 Labs: Laboratory Results - last 24 hr 07/13/22 07/13/22 07/13/22 18:14 18:27 18:27 WBC 4.5 RBC 3.69 L Hgb 11.4 L Hct 33.1 L MCV 89.9 MCH 30.8 MCHC 34.3 RDW 12.7 Plt Count 164 Neut % (Auto) 72.0 Lymph % (Auto) 14.2 L [place] % (Auto) 8.8 Eos % (Auto) 4.8 H Baso % (Auto) 0.2 Neut # (Auto) 3200 Lymph # (Auto) 600 L [place] # (Auto) 400 Eos # (Auto) 200 Baso # (Auto) 0 PT INR Sodium 135 L Potassium 4.2 Chloride 95 L Carbon Dioxide 28 BUN 75 H Creatinine 2.85 H Estimated GFR 16 L BUN/Creatinine Ratio 26.3 H Glucose 123 H Hemoglobin A1c Calcium 8.5 Magnesium Total Bilirubin AST ALT Alkaline Phosphatase Total Protein Albumin Globulin Albumin/Globulin Ratio Urine Color Urine Appearance Urine pH Ur Specific [place] Urine Protein Urine Glucose (UA) Urine Ketones Urine Occult Blood Urine Nitrate Urine Bilirubin Urine Urobilinogen Ur Leukocyte Esterase Urine RBC Urine WBC Urine Bacteria Ur Culture Indicated? Nasal Screen MRSA (PCR) SARS-CoV-2 (PCR) Negative 07/13/22 07/13/22 07/13/22 18:27 18:27 21:55 WBC RBC Hgb Hct MCV MCH MCHC RDW Plt Count Neut % (Auto) Lymph % (Auto) [place] % (Auto) Eos % (Auto) Baso % (Auto) Neut # (Auto) Lymph # (Auto) [place] # (Auto) Eos # (Auto) Baso # (Auto) PT INR Sodium Potassium Chloride Carbon Dioxide BUN Creatinine Estimated GFR BUN/Creatinine Ratio Glucose Hemoglobin A1c 7.7 H Calcium Magnesium 2.8 H Total Bilirubin AST ALT Alkaline Phosphatase Total Protein Albumin Globulin Albumin/Globulin Ratio Urine Color Yellow Urine Appearance Clear Urine pH 6.0 Ur Specific [place] 1.010 Urine Protein 1+ H Urine Glucose (UA) Negative Urine Ketones Negative Urine Occult Blood Trace-intact Urine Nitrate Positive H Urine Bilirubin Negative Urine Urobilinogen 0.2 Ur Leukocyte Esterase 2+ H Urine RBC None seen Urine WBC 10-30/hpf H Urine Bacteria Many (>30) H Ur Culture Indicated? Specimen cultured Nasal Screen MRSA (PCR) SARS-CoV-2 (PCR) 07/13/22 07/14/22 07/14/22 22:20 04:00 04:00 WBC 5.7 RBC 3.47 L Hgb 10.7 L Hct 31.5 L MCV 90.7 MCH 30.7 MCHC 33.8 RDW 12.8 Plt Count 143 L Neut % (Auto) 79.8 H Lymph % (Auto) 8.8 L [place] % (Auto) 8.4 Eos % (Auto) 2.9 Baso % (Auto) 0.1 Neut # (Auto) 4500 Lymph # (Auto) 500 L [place] # (Auto) 500 Eos # (Auto) 200 Baso # (Auto) 0 PT 13.1 H INR 1.1 Sodium Potassium Chloride Carbon Dioxide BUN Creatinine Estimated GFR BUN/Creatinine Ratio Glucose Hemoglobin A1c Calcium Magnesium Total Bilirubin AST ALT Alkaline Phosphatase Total Protein Albumin Globulin Albumin/Globulin Ratio Urine Color Urine Appearance Urine pH Ur Specific [place] Urine Protein Urine Glucose (UA) Urine Ketones Urine Occult Blood Urine Nitrate Urine Bilirubin Urine Urobilinogen Ur Leukocyte Esterase Urine RBC Urine WBC Urine Bacteria Ur Culture Indicated? Nasal Screen MRSA (PCR) Positive for mrsa H SARS-CoV-2 (PCR) 07/14/22 04:00 WBC RBC Hgb Hct MCV MCH MCHC RDW Plt Count Neut % (Auto) Lymph % (Auto) [place] % (Auto) Eos % (Auto) Baso % (Auto) Neut # (Auto) Lymph # (Auto) [place] # (Auto) Eos # (Auto) Baso # (Auto) PT INR Sodium 137 Potassium 4.2 Chloride 100 Carbon Dioxide 28 BUN 66 H Creatinine 2.53 H Estimated GFR 19 L BUN/Creatinine Ratio 26.1 H Glucose 180 H Hemoglobin A1c Calcium 8.3 L Magnesium 2.4 H Total Bilirubin 0.4 AST 31 ALT 32 Alkaline Phosphatase 82 Total Protein 6.5 Albumin 3.8 Globulin 2.7 Albumin/Globulin Ratio 1.4 Urine Color Urine Appearance Urine pH Ur Specific [place] Urine Protein Urine Glucose (UA) Urine Ketones Urine Occult Blood Urine Nitrate Urine Bilirubin Urine Urobilinogen Ur Leukocyte Esterase Urine RBC Urine WBC Urine Bacteria Ur Culture Indicated? Nasal Screen MRSA (PCR) SARS-CoV-2 (PCR) [facility] Medical History Anemia in CKD (chronic kidney disease) Chronic kidney disease Chronic kidney disease (CKD) stage G4/A1, severely decreased glomerular filtration rate (GFR) between 15-29 mL/min/1.73 square meter and albuminuria creatinine ratio less than 30 mg/g Diabetes Essential hypertension Gastric neurostimulator device in situ Hearing aid worn History of MRSA infection Hypertensive nephrosclerosis Hyperuricemia Insomnia Iron deficiency anemia Obstructive sleep apnea on CPAP Sleep apnea Surgical History History of colon surgery History of myringotomy History of tonsillectomy Family History Father CKD (chronic kidney disease) Mother Hypertension Social History household members: none Smoking Status: Never smoker alcohol intake: never Assessment & Plan Assessment & Plan narrative: 1. Ground level fall resulting in a pathologic right femoral neck fracture, acute, present on admission -Right knee x-ray is negative -Right hip x-ray demonstrates right femoral neck fracture -patient has mineral bone disease secondary to CKD G4/A1 -NPO after midnight-with the exception patient may take her blood pressure medications in the morning with a sip of water. -pain control: IV morphine, ice, Voltaren, lidocaine patch as needed -D5 normal saline at 80 cc/HR -blood sugar checks q.6 hours while NPO -MRSA screen positive -Consulted Dr. Lizarraga who till take for hip repair surgery at 4:30 2. Essential hypertension, uncontrolled, acute on chronic, in the setting of hypertensive nephrosclerosis and DONNIE, chronic, present on admission -admit BP 189/86 -continue carvedilol, losartan -hold Lasix 3. Iron-deficiency anemia of CKD, acute on chronic, present on admission -HGB 11.4, HCT 33.1-trend hematology labs, monitor for bleeding -per nephrology notes baseline hemoglobin 11 -Hold ferrous sulfate 4.Chronic kidney disease G4/A1 with mineral bone disease, chronic, present on admission -sodium 135, chloride 95, BUN 75, creatinine 2.85, glucose 123, GFR 16, Mag 2.8 -review of nephrology notes show baseline creatinine 2.34, GFR 19 -avoid nephrotoxic medications -gentle rehydration D5 NS at 80 cc/HR -let Dr. Evans her senior product engineer know she will be going for surgery, he is aware 5. Obstructive sleep apnea with CPAP, chronic, present on admission -respiratory consult, to administer CPAP 6. Hyperuremicemia, chronic, present on admission -holding allopurinol 7. Bowel incontinence, with gastro neurostimulator in place, chronic, present on admission -Holding loperamide 8. [id number] type 2 diabetes, chronic, with hyperlipidemia, chronic, present on admission -patient admitted under diabetic protocol, monitor for hypo and hyperglycemia -low-dose sliding scale, Q 6 VS checks while NPO -post surgery resume a.c. HS, low-dose sliding scale -A1c 7.7% -holding patient's Januvia -hold simvastatin 9. UTI, acute, present on admission -obtain Bld cultures x2 before starting rocephin -Rocephin 1g x3 days -Urine cultures pending -D5NS@80cc/hr Code status:Full Surrogate decision maker: Adry Floyd Daughter COVID PCR:Negative DVT/VTE prophylaxis:Hold medication due to surgery, SCD Left Only Disposition: Likely SNF in 1-2 days following PT eval. Time Spent With Patient Critical Care time: I spent a total of [] minutes of critical care time on this patient's care today; this time is exclusive of procedural time. Quality VTE Deep Vein Thrombosis/Pulmonary Embolism Present on Admission: No
[2022-07-14] MEDS: carvediloL 12.5 MG TABLET PO (09:20)
[2022-07-14] MEDS: DEXTROSE 5%-0.9% NS 1,000 ML 80 ML IV (11:17)
--- NOTE | 2022-07-14 11:28 | CM.DANOTE ---
Patient is a 81 yo female who was admitted on 07/13/22 for GLF/hip pain. Pt has [facility] and [employer] for insurance and her PCP is Dotty Walters. EMR was reviewed. Per MD, pt with GLF and hip fx and Ortho to Consult for likely surgical intervention. Pt also MRSA+, UTI, and poor kidney function and getting gentle hydration. Per RN, Ortho Consult still pending but on the schedule for surgery today at 1430. SW met bedside with pt and adult Dtr/DPOA Adry and explained role and pt confirms she lives on [address] in a second store apt alone and only stairs to enter and no elevator. Pt drives, does not use DME for ambulation, independent with ADLs and no local family but has supportive local friends on [place]. Pt denies any hx of HH or SNF. Dtr Adry lives in [facility] with her and works and took work off today to be bedside. SW discussed process of PT/OT post surgery towards determining HH vs SNF and explained Medicare coverage for SNF and HH and services and frequency. Dtr states likely SNF needed at d/c and both Dtr and pt agree that SNF preference would be [facility]F so Dtr could visit daily. SW called [facility] and they have beds and requested clinicals be faxed to Attn: Spencer at fax [phone] for review and aware pt likely to have surgery this afternoon. SW called [facility] and they are unsure if they will have beds but request clinicals faxed to [phone] and call admissions at [phone]. SW faxed initial clinicals for review. SW called [facility] and left [facility] admissions and faxed initial clinicals to [phone]. PASRR completed in anticipation of SNF and COVID vax status printed as pt with 4 COVID vaccinations. Plan: SW to follow closely for surgery this afternoon and then PT/OT recommendations tomorrow towards determining likely SNF vs home with HH. JAY Brennan Discharge Planning/Care Management CM Discharge Assessment Start: 07/14/22 11:22 Freq: Status: Active Protocol: Document 07/14/22 11:22 BF (Rec: 07/14/22 11:28 BF [id number]) Discharge Planning Assessment Assigned Absorption Operator JAY Smith DPOA/Assigned Designee Name Dtr Adry Contact Information [phone] Advance Directives? No Advance Directives on File No History Provided By Patient,Family Member,Medical Record Has Patient been admitted in last 30 No days? Prior Living Arrangements Apartment/Condo Household Members none Type of transporation used prior to Drives own vehicle admit Independent with ADL's Yes Is patient alert and oriented? Yes Caregiver for Another No Patient/Family Preference Half-Way Facility,Home with Home Health Comment SNF vs HH pending hip surgery and PT/OT recommendations Barriers to Discharge No Discharge Plan Half-Way Facility Transportation Arrangement Dtr bedside and can provide transport at d/c if needed Referrals Initiated Half-Way If patient plan is SNF: Has PASSR been Yes completed? Medicare Choice List Provided Yes SNF/HH Preference [facility] SNF is preference Has Agency SNF been contacted Yes Whiteboard Updated in Patient Room with Yes name and ext. # of Absorption Operator Review Status In Process Please Provide Date Initial DC 07/14/22 Assessment Was Performed Next Review Type Continued Stay Review
--- NOTE | 2022-07-14 16:53 | PC.NURSE ---
Day shift note: Off floor to surgery.
--- NOTE | 2022-07-14 17:30 | PM.CN ---
History of Present Illness Consult details Date Patient Seen: 07/14/22 Time Patient Seen: 17:15 Chief complaint: GLF- ? right hip fx Narrative: 81-year-old female who slipped and fell yesterday landing on her right hip. Patient was having pain and difficulty with range of motion and ambulating and was taken to the hospital. X-rays at that time showed a nondisplaced femoral neck fracture. Due to this injury patient was admitted. Patient denies any other injuries from the fall. Denies any loss of consciousness or syncopal episode. Meds Home Medications and Allergies Home Medications Medication Instructions Recorded Confirmed Type allopurinol 100 mg tablet 100 mg PO DAILY 07/13/22 07/13/22 History brimonidine 0.2 % eye drops 1 drp EYE-BOTH BID 07/13/22 07/13/22 History calcitriol 0.25 mcg capsule 0.25 mcg PO DAILY 07/13/22 07/13/22 History carvedilol 25 mg tablet 25 mg PO BID 07/13/22 07/13/22 History dorzolamide 2 % eye drops 1 drp EYE-BOTH BID 07/13/22 07/13/22 History furosemide 20 mg tablet 40 mg PO DAILY 07/13/22 07/13/22 History latanoprost 0.005 % eye drops 1 drp EYE-BOTH BEDTIME 07/13/22 07/13/22 History loperamide 2 mg capsule 2 mg PO Q6H PRN Diarrhea 07/13/22 07/13/22 History losartan 50 mg tablet 50 mg PO DAILY 07/13/22 07/13/22 History simvastatin 40 mg tablet 40 mg PO DAILY 07/13/22 07/13/22 History sitagliptin 25 mg tablet (Januvia) 25 mg PO DAILY 07/13/22 07/13/22 History Allergies Allergy/AdvReac Type Severity Reaction Status Date / Time Penicillins Allergy Verified 07/13/22 18:49 Sulfa (Sulfonamide Allergy rash Verified 11/16/18 14:35 Antibiotics) vancomycin Allergy Hives Verified 07/13/22 21:59 Exam Vital Signs (past 8 hours): - 07/14/22 11:24 07/14/22 12:37 07/14/22 17:05 Temperature 97.8 F 97.3 F L Pulse Rate 66 61 71 Respiratory Rate 18 14 Blood Pressure 138/72 139/66 179/84 H Pulse Oximetry 93 Oxygen Delivery Method Room Air Oxygen Flow Rate 0 Oxygen Delivery Method Room Air Oxygen Flow Rate 0 Narrative Exam Narrative: On physical exam, patient is alert and oriented x3. No apparent distress. Patient denies pain elsewhere. No real sign of any significant shortening or rotation the right lower leg. No sign of any swelling or instability of the knee or ankle. Patient has positive dorsiflexion and plantar flexion. 2+ pedal pulses. Compartments are soft. Objective Labs Result Diagrams: 07/14/22 04:00 07/14/22 04:00 Labs: Laboratory Results - last 24 hr 07/13/22 07/13/22 07/13/22 18:14 18:27 18:27 WBC 4.5 RBC 3.69 L Hgb 11.4 L Hct 33.1 L MCV 89.9 MCH 30.8 MCHC 34.3 RDW 12.7 Plt Count 164 Neut % (Auto) 72.0 Lymph % (Auto) 14.2 L [place] % (Auto) 8.8 Eos % (Auto) 4.8 H Baso % (Auto) 0.2 Neut # (Auto) 3200 Lymph # (Auto) 600 L [place] # (Auto) 400 Eos # (Auto) 200 Baso # (Auto) 0 PT INR Sodium 135 L Potassium 4.2 Chloride 95 L Carbon Dioxide 28 BUN 75 H Creatinine 2.85 H Estimated GFR 16 L BUN/Creatinine Ratio 26.3 H Glucose 123 H Hemoglobin A1c Calcium 8.5 Magnesium Total Bilirubin AST ALT Alkaline Phosphatase Total Protein Albumin Globulin Albumin/Globulin Ratio Urine Color Urine Appearance Urine pH Ur Specific [place] Urine Protein Urine Glucose (UA) Urine Ketones Urine Occult Blood Urine Nitrate Urine Bilirubin Urine Urobilinogen Ur Leukocyte Esterase Urine RBC Urine WBC Urine Bacteria Ur Culture Indicated? Nasal Screen MRSA (PCR) SARS-CoV-2 (PCR) Negative 07/13/22 07/13/22 07/13/22 18:27 18:27 21:55 WBC RBC Hgb Hct MCV MCH MCHC RDW Plt Count Neut % (Auto) Lymph % (Auto) Rin[place] % (Auto) Eos % (Auto) Baso % (Auto) Neut # (Auto) Lymph # (Auto) R[place] # (Auto) Eos # (Auto) Baso # (Auto) PT INR Sodium Potassium Chloride Carbon Dioxide BUN Creatinine Estimated GFR BUN/Creatinine Ratio Glucose Hemoglobin A1c 7.7 H Calcium Magnesium 2.8 H Total Bilirubin AST ALT Alkaline Phosphatase Total Protein Albumin Globulin Albumin/Globulin Ratio Urine Color Yellow Urine Appearance Clear Urine pH 6.0 Ur Specific [place] 1.010 Urine Protein 1+ H Urine Glucose (UA) Negative Urine Ketones Negative Urine Occult Blood Trace-intact Urine Nitrate Positive H Urine Bilirubin Negative Urine Urobilinogen 0.2 Ur Leukocyte Esterase 2+ H Urine RBC None seen Urine WBC 10-30/hpf H Urine Bacteria Many (>30) H Ur Culture Indicated? Specimen cultured Nasal Screen MRSA (PCR) SARS-CoV-2 (PCR) 07/13/22 07/14/22 07/14/22 22:20 04:00 04:00 WBC 5.7 RBC 3.47 L Hgb 10.7 L Hct 31.5 L MCV 90.7 MCH 30.7 MCHC 33.8 RDW 12.8 Plt Count 143 L Neut % (Auto) 79.8 H Lymph % (Auto) 8.8 L [place] % (Auto) 8.4 Eos % (Auto) 2.9 Baso % (Auto) 0.1 Neut # (Auto) 4500 Lymph # (Auto) 500 L [place] # (Auto) 500 Eos # (Auto) 200 Baso # (Auto) 0 PT 13.1 H INR 1.1 Sodium Potassium Chloride Carbon Dioxide BUN Creatinine Estimated GFR BUN/Creatinine Ratio Glucose Hemoglobin A1c Calcium Magnesium Total Bilirubin AST ALT Alkaline Phosphatase Total Protein Albumin Globulin Albumin/Globulin Ratio Urine Color Urine Appearance Urine pH Ur Specific [place] Urine Protein Urine Glucose (UA) Urine Ketones Urine Occult Blood Urine Nitrate Urine Bilirubin Urine Urobilinogen Ur Leukocyte Esterase Urine RBC Urine WBC Urine Bacteria Ur Culture Indicated? Nasal Screen MRSA (PCR) Positive for mrsa H SARS-CoV-2 (PCR) 07/14/22 04:00 WBC RBC Hgb Hct MCV MCH MCHC RDW Plt Count Neut % (Auto) Lymph % (Auto) Rin[place] % (Auto) Eos % (Auto) Baso % (Auto) Neut # (Auto) Lymph # (Auto) [place] # (Auto) Eos # (Auto) Baso # (Auto) PT INR Sodium 137 Potassium 4.2 Chloride 100 Carbon Dioxide 28 BUN 66 H Creatinine 2.53 H Estimated GFR 19 L BUN/Creatinine Ratio 26.1 H Glucose 180 H Hemoglobin A1c Calcium 8.3 L Magnesium 2.4 H Total Bilirubin 0.4 AST 31 ALT 32 Alkaline Phosphatase 82 Total Protein 6.5 Albumin 3.8 Globulin 2.7 Albumin/Globulin Ratio 1.4 Urine Color Urine Appearance Urine pH Ur Specific [place] Urine Protein Urine Glucose (UA) Urine Ketones Urine Occult Blood Urine Nitrate Urine Bilirubin Urine Urobilinogen Ur Leukocyte Esterase Urine RBC Urine WBC Urine Bacteria Ur Culture Indicated? Nasal Screen MRSA (PCR) SARS-CoV-2 (PCR) [facility] Medical History Anemia in CKD (chronic kidney disease) Chronic kidney disease Chronic kidney disease (CKD) stage G4/A1, severely decreased glomerular filtration rate (GFR) between 15-29 mL/min/1.73 square meter and albuminuria creatinine ratio less than 30 mg/g Diabetes Essential hypertension Gastric neurostimulator device in situ Hearing aid worn History of MRSA infection Hypertensive nephrosclerosis Hyperuricemia Insomnia Iron deficiency anemia Obstructive sleep apnea on CPAP Sleep apnea Surgical History History of colon surgery History of myringotomy History of tonsillectomy Family History Father CKD (chronic kidney disease) Mother Hypertension Social History household members: none Tobacco & Substance Use Smoking Status: Never smoker alcohol intake: never Assessment & Plan Assessment & Plan narrative: Patient with a nondisplaced femoral neck fracture. Due to this injury we discussed treatment options both operative versus non operative. Patient is interested in proceeding with operative treatment. Fully understands the risk and limitations associated with the procedure. All of her questions and concerns were answered to her full satisfaction. The risk, benefits, alternatives, possible complications, operative course, and postop outcomes were discussed. Complications including but not limiting to bleeding, infection, fracture, nerve injury, continued pain postoperatively or instability postoperatively were discussed in detail. Medical complications including but not limited to deep venous thrombosis event, anesthesia complications with excessive bleeding, vascular events or cardiac events and other possible complications were discussed in detail. Need for postoperative rehabilitation and anticipated hospital stay and clinical course were discussed in detail. Patient acknowledges understanding and elects to proceed with surgery. Time Spent With Patient Critical Care time: I spent a total of [] minutes of critical care time on this patient's care today; this time is exclusive of procedural time.
--- NOTE | 2022-07-14 17:32 | PM.PREOP ---
Pre-operative Note Interval Note History & Physical reviewed/Exam performed by Physician: Yes Changes to H&P: No
[2022-07-14] MEDS: CEFAZOLIN 2 GM/100 ML PREMIX 100 ML IV (17:52)
--- NOTE | 2022-07-14 18:10 | SUR.OPER ---
Supine on padded [place] table with bilateral legs secured in right padded positioning boot and suspended in positioning spars, left leg in well leg young operative leg in traction per surgeon. Head on one pillow. Arm on non-operative side secured on padded armboard <90 degrees abduction. Arm on operative side padded and resting across chest then secured with tape over sheet. Padded perineal post in place per surgeon.
[2022-07-14] MEDS: BUPIVACAINE 0.5% W/ EPI (PF) 30 ML VIAL INJ (18:19)
--- NOTE | 2022-07-14 18:30 | P.OP_ITS ---
Operative Date/Time/Diagnoses Date of procedure: 07/14/22 Time of procedure: 18:00 Pre-op diagnosis: Right femoral neck fracture Post-op diagnosis: same Procedure & Clinicians Procedure: Closed reduction internal fixation right femoral neck Same procedure as scheduled: Yes Indications: Femoral neck fracture Surgeon: Yang Lizarraga Click Yes if Unassisted: Yes Anesthesia Type: General Operative Notes Findings: Minimally displaced femoral neck fracture Estimated Blood Loss (mL): 0 Procedure in detail: On date of service, patient was met in the holding area where his operative site was signed and witnessed by the OR staff. Surgeries once again discussed with the patient and any remaining questions or concerns he had were answered fully. Patient received 2 g of Ancef preoperatively. Patient was taken back to the operating theater where general anesthesia was admitted. Patient was then transferred to the fracture table. Both feet were well padded and placed into fracture boot. A well-padded perineal post was placed. The left leg was slightly elevated and internally rotated was some distraction. The right leg was placed in scissor position on a lowered position. X-ray was brought in and AP and lateral views were obtained showing maintenance of a nondisplaced femoral neck fracture. Time-out had previously been formed verifying patient's name, procedure, and operative site. The leg was then prepped and draped in the normal sterile fashion. Ten blade was used to make a small incision on the lateral aspect of thigh. Miranda elevator was then used to elevate off a small area of the muscular tissue so we could get to the shaft of the femur. Guidewire was placed up into the femoral head in a center center position. This was verified on x-ray. Once we were satisfied with the position of the guidewire 2 additional guidewires were placed using the targeting guide. These were also verified with AP and lateral views with the C- arm. Once we were satisfied with the positioning and of the 3 guidewires they were measured and the appropriate screws were placed. Final x-rays were obtained verifying screw positioning and maintenance of reduction of the femoral neck fracture. The wound was then copiously irrigated and then closed in a layered fashion. The wound was cleaned, dried, and dressed. Patient was taken to the PACU in stable condition. Complications: none Post-operative Condition: stable Disposition: Acute Care Plan for aftercare: Patient can be weight-bearing as tolerated.
[2022-07-14] MEDS: LABETALOL 20 MG/4 ML SYRINGE 10 MG IV (18:47)
[2022-07-14] MEDS: LACTATED RINGERS 1,000 ML 125 ML IV (19:43)
[2022-07-14] MEDS: carvediloL 12.5 MG TABLET 25 MG PO (21:16)
[2022-07-14] MEDS: MAGNESIUM HYDROXIDE 30 ML UDC PO (21:16)
[2022-07-14] MEDS: DOCUSATE 100 MG CAPSULE PO (21:16)
[2022-07-14] MEDS: SENNOSIDES 8.6 MG TABLET 17.2 MG PO (21:17)
[2022-07-14] MEDS: OXYCODONE IR 10 MG TABLET PO (21:17)
[2022-07-14] MEDS: METOPROLOL TARTRATE 5 MG/5 ML INJ IV (22:49)
[2022-07-15] VITALS (10 sets, daily range): BP systolic 119–189; BP diastolic 68–89; PULSE 56–81; RESP 18–20; TEMP 36.1–36.6; O2SAT 94–97
[2022-07-15] MEDS: CEFAZOLIN 2 GM/100 ML PREMIX 100 ML IV ×2 (02:09→09:37)
[2022-07-15] MEDS: OXYCODONE IR 10 MG TABLET PO ×2 (02:09→09:42)
[2022-07-15] MEDS: cefTRIAXone 1,000 MG in SODIUM CHLORIDE 0.9% 100 ML 200 MG IV (03:09)
[2022-07-15] MEDS: ONDANSETRON 4 MG ODT PO (03:48)
[2022-07-15 05:51] LABS: Hematocrit 31.1 % (36-46); Hemoglobin 10.4 g/dL (12.0-16.0); Mean Corpuscular HGB Conc 33.5 % (30-36); Mean Corpuscular Hemoglobin 30.2 PG (26-34); Mean Corpuscular Volume 90.2 fL (80-100); Platelet Count 126 X10^3/uL (150-400); Red Blood Cell Count 3.45 X10^6/uL (4.0-5.2); Red Cell Distribution Width 12.9 % (11.6-14.8); White Blood Cell Count 5.7 X10^3/uL (4.5-11.0)
[2022-07-15 06:00] LABS: Alanine Aminotransferase 28 IU/L (<35); Albumin 3.5 g/dL (3.5-5.0); Albumin Globulin Ratio 1.3 (1.0-2.8); Alkaline Phosphatase 79 U/L (38-126); Aspartate Aminotransferase 27 IU/L (14-36); BUN Creatinine Ratio 22.9 (6-22); Bilirubin Total 0.2 mg/dL (0.2-1.3); Blood Urea Nitrogen 49 mg/dL (7-17); Calcium 8.5 mg/dL (8.4-10.2); Carbon Dioxide 30 mmol/L (22-32); Chloride 102 mmol/L (98-107); Estimated Glomerular Filt Rate 23 mL/min (>60); Globulin 2.7 g/dL (1.7-4.1); Glucose 157 mg/dL (80-110); HEMOLYSIS 16 (0-50); Magnesium 2.2 mg/dL (1.6-2.3); Potassium 4.2 mmol/L (3.4-5.1); Sodium 140 mmol/L (137-145); Total Protein 6.2 g/dL (6.3-8.2)
[2022-07-15] MEDS: ACETAMINOPHEN 325 MG TABLET 650 MG PO ×2 (06:07→17:49)
--- NOTE | 2022-07-15 08:10 | PM.PNPO.1 ---
Subjective Subjective Date Patient Seen: 07/15/22 Time Patient Seen: 08:11 Interval history: Patient is complaining of nausea this morning. Her pain is manageable. She is not worked with physical therapy yet. Her daughter is at bedside. She lives alone on [address] on a 2 story house with no help. She will likely be discharged to SNF. Exam Vital Signs (past 8 hours): - 07/15/22 00:59 07/15/22 04:27 Temperature 97.8 F 97.2 F L Pulse Rate 70 56 L Respiratory Rate 18 20 Blood Pressure 157/68 H 163/75 H Pulse Oximetry 95 97 Oxygen Flow Rate 1 1 Oxygen Delivery Method Nasal Cannula Oxygen Flow Rate 1 Narrative Exam Narrative: Pleasant 81-year-old female, resting comfortably in bed, no acute distress. Dressing is clean, dry, intact. Bilateral lower extremity: Motor functions are grossly intact, sensation is grossly intact to light touch, calves are soft and nontender to palpation. Objective Labs Result Diagrams: 07/15/22 04:54 07/15/22 04:54 Labs: Laboratory Results - last 24 hr 07/15/22 07/15/22 04:54 04:54 WBC 5.7 RBC 3.45 L Hgb 10.4 L Hct 31.1 L MCV 90.2 MCH 30.2 MCHC 33.5 RDW 12.9 Plt Count 126 L Sodium 140 Potassium 4.2 Chloride 102 Carbon Dioxide 30 BUN 49 H Creatinine 2.14 H Estimated GFR 23 L BUN/Creatinine Ratio 22.9 H Glucose 157 H Calcium 8.5 Magnesium 2.2 Total Bilirubin 0.2 AST 27 ALT 28 Alkaline Phosphatase 79 Total Protein 6.2 L Albumin 3.5 Globulin 2.7 Albumin/Globulin Ratio 1.3 [facility] Medical History Anemia in CKD (chronic kidney disease) Chronic kidney disease Chronic kidney disease (CKD) stage G4/A1, severely decreased glomerular filtration rate (GFR) between 15-29 mL/min/1.73 square meter and albuminuria creatinine ratio less than 30 mg/g Diabetes Essential hypertension Gastric neurostimulator device in situ Hearing aid worn History of MRSA infection Hypertensive nephrosclerosis Hyperuricemia Insomnia Iron deficiency anemia Obstructive sleep apnea on CPAP Sleep apnea Surgical History History of colon surgery History of myringotomy History of tonsillectomy Family History Father CKD (chronic kidney disease) Mother Hypertension Social History household members: none Smoking Status: Never smoker alcohol intake: never Assessment & Plan Post-op Postoperative Procedures: Procedures Operation Date: 07/14/22 16:30 Actual Procedure Side Surgeon p closed reduction/perc pinning hip Right Yang Lizarraga MD Postoperative day: 1 Postoperative status narrative: -stable status post right hip percutaneous pinning -history of hypertension, DM, CKD stage 4, being managed by the hospitalist team Postoperative plan narrative: -mobilize with physical therapy -weightbearing as tolerated with front wheel walker or cane -continue with multimodal pain management -DVT prophylaxis per hospitalist team due to her chronic kidney disease -disposition, to be determined by primary team. Likely to SNF when safe Quality VTE Deep Vein Thrombosis/Pulmonary Embolism Present on Admission: No
--- NOTE | 2022-07-15 08:32 | P.PN_ITS ---
Subjective Subjective Date Patient Seen: 07/15/22 Time Patient Seen: 09:00 Interval history: Patient having hip soreness after surgery but able to transfer to chair with PT this morning. She otherwise has no compliants. Exam Vital Signs (past 8 hours): - 07/15/22 00:59 07/15/22 04:27 07/15/22 08:00 Temperature 97.8 F 97.2 F L 97.9 F Pulse Rate 70 56 L 81 Respiratory Rate 18 20 18 Blood Pressure 157/68 H 163/75 H 189/89 H Pulse Oximetry 95 97 96 Oxygen Flow Rate 1 1 1 Oxygen Delivery Method Nasal Cannula Oxygen Flow Rate 1 Narrative Exam Narrative: General: Patient is a well-developed, well-nourished elderly female in no distress at this time. pain well controlled. HEENT: Normocephalic, atraumatic, extraocular muscles intact, oral pharynx is clear and mucous membranes are moist. Neck is supple and symmetric, trachea is midline, no adenopathy, no thyroid enlargement, nontender, no masses palpated. Negative for JVD Chest: Normal AP diameter and contour without kyphoscoliosis, no nasal flaring, retractions, or tachypneic labored Lungs: Auscultation of all lung lombardo are clear without adventitious sounds, wheezes, rhonchi, or rales. Cardio: S1 & S2 with regular rate and rhythm without murmur, rubs, or gallops, no carotid bruit, no cardiac pulsations present. Abdomen: Soft nontender, negative for organomegaly, or masses. Bowel sounds are present in all 4 quadrants without guarding or rebound, no CVA tenderness. Musculoskeletal: Pain to palpation of right hip. No effusions, cyanosis, clubbing or edema present. intact radial and pedal pulses are normal. Skin: Warm dry and intact without rashes, ulcerations or petechiae. Neuro: Alert and orientated x3, strength is +5/5 in all extremities, sensation to touch intact, no gross deficits noted of cranial nerves. Psych: Patient has a well-kept appearance, appropriate affect, mental status attitude thought context and judgment are appropriate for age. Objective Labs Result Diagrams: 07/15/22 04:54 07/15/22 04:54 Labs: Laboratory Results - last 24 hr 07/15/22 07/15/22 04:54 04:54 WBC 5.7 RBC 3.45 L Hgb 10.4 L Hct 31.1 L MCV 90.2 MCH 30.2 MCHC 33.5 RDW 12.9 Plt Count 126 L Sodium 140 Potassium 4.2 Chloride 102 Carbon Dioxide 30 BUN 49 H Creatinine 2.14 H Estimated GFR 23 L BUN/Creatinine Ratio 22.9 H Glucose 157 H Calcium 8.5 Magnesium 2.2 Total Bilirubin 0.2 AST 27 ALT 28 Alkaline Phosphatase 79 Total Protein 6.2 L Albumin 3.5 Globulin 2.7 Albumin/Globulin Ratio 1.3 [facility] Medical History Anemia in CKD (chronic kidney disease) Chronic kidney disease Chronic kidney disease (CKD) stage G4/A1, severely decreased glomerular filtration rate (GFR) between 15-29 mL/min/1.73 square meter and albuminuria creatinine ratio less than 30 mg/g Diabetes Essential hypertension Gastric neurostimulator device in situ Hearing aid worn History of MRSA infection Hypertensive nephrosclerosis Hyperuricemia Insomnia Iron deficiency anemia Obstructive sleep apnea on CPAP Sleep apnea Surgical History History of colon surgery History of myringotomy History of tonsillectomy Family History Father CKD (chronic kidney disease) Mother Hypertension Social History household members: none Smoking Status: Never smoker alcohol intake: never Assessment & Plan Assessment & Plan narrative: 1. Ground level fall resulting in a pathologic right femoral neck fracture, acute, present on admission -Right hip x-ray demonstrates right femoral neck fracture, underwent hip repair with Dr. 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 Essential hypertension, uncontrolled, acute on chronic, in the setting of hypertensive nephrosclerosis and DONNIE, chronic, present on admission -admit BP 189/86 -continue carvedilol, losartan -hold Lasix 3. 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 Evans her youth nutritional monitor know she will be going for surgery, he is aware -Cr improved following surgery 5. Obstructive sleep apnea with CPAP, chronic, present on admission -respiratory consult, to administer CPAP 6. Hyperuremicemia, chronic, present on admission -holding allopurinol 7. Bowel incontinence, with gastro neurostimulator in place, chronic, present on admission -Holding loperamide 8. [id number] type 2 diabetes, chronic, with hyperlipidemia, chronic, present on admission -patient admitted under diabetic protocol, monitor for hypo and hyperglycemia -low-dose sliding scale, Q 6 VS checks while NPO -post surgery resume a.c. HS, low-dose sliding scale -A1c 7.7% -holding patient's Januvia -hold simvastatin 9. UTI, acute, present on admission -obtain Bld cultures x2 before starting rocephin -Rocephin 1g x3 days -Urine cultures with GNR's Code status:Full Surrogate decision maker: Adry Floyd Daughter FELICIA PCR:Negative DVT/VTE prophylaxis: Lovenox Disposition: Likely SNF in 1-2 days. Time Spent With Patient Critical Care time: I spent a total of [] minutes of critical care time on this patient's care today; this time is exclusive of procedural time. Quality VTE Deep Vein Thrombosis/Pulmonary Embolism Present on Admission: No
[2022-07-15] MEDS: FUROSEMIDE 20 MG TABLET 40 MG PO (09:35)
[2022-07-15] MEDS: ENOXAPARIN 30 MG/0.3 ML SYRINGE SUBCUT (09:35)
[2022-07-15] MEDS: DOCUSATE 100 MG CAPSULE PO ×2 (09:35→20:03)
[2022-07-15] MEDS: SITAGLIPTIN 50 MG TABLET 25 MG PO (09:35)
[2022-07-15] MEDS: carvediloL 12.5 MG TABLET 25 MG PO ×2 (09:36→20:03)
[2022-07-15] MEDS: LOSARTAN 50 MG TABLET PO (09:37)
[2022-07-15] MEDS: allopurinoL 100 MG TABLET PO (09:37)
[2022-07-15] MEDS: ATORVASTATIN 20 MG TABLET PO (09:37)
[2022-07-15] MEDS: calcitrioL 0.25 MCG CAPSULE PO (09:39)
[2022-07-15] MEDS: METOCLOPRAMIDE 10 MG/2 ML INJ IV (09:45)
--- NOTE | 2022-07-15 12:30 | PT.IIE ---
Current Diagnoses Fracture of unspecified part of neck of right femur, initial encounter for closed fracture (07/13/22) Surgery Performed Operation Date: 07/14/22 16:30 Actual Procedures p closed reduction/perc pinning hip(Right) - Yang Lizarraga MD Surgical History (Last Reviewed 07/15/22 @ 08:12 by Sidra Angel PA-C) History of colon surgery History of myringotomy History of tonsillectomy Medical History (Last Reviewed 07/15/22 @ 08:12 by Sidra Angel PA-C) Anemia in CKD (chronic kidney disease) Chronic kidney disease Chronic kidney disease (CKD) stage G4/A1, severely decreased glomerular filtration rate (GFR) between 15-29 mL/min/1.73 square meter and albuminuria creatinine ratio less than 30 mg/g Diabetes Essential hypertension Gastric neurostimulator device in situ Hearing aid worn History of MRSA infection Hypertensive nephrosclerosis Hyperuricemia Insomnia Iron deficiency anemia Obstructive sleep apnea on CPAP Sleep apnea Physical Therapy Inpatient Evaluation/Re-Eval M1 PT/OT-IP Prior Functional Status Start: 07/15/22 14:48 Freq: NEEDED Status: Active Protocol: Document 07/15/22 12:30 DLM (Rec: 07/15/22 18:18 DLM [id number]) Medical Review Prior Functional Status Medical History Reviewed Yes Diet/Fluid Consistency Regular Communication WFL, wears glasses all the time, chart notes indicate she has hearing aides Mobility and Gait Independent without device, community distances, drives Activities of Daily Living and IADL's Independent Social History Household Members none Living Arrangements Apartment/Condo Number of Floors (Floors) One Floor Number of Stairs To Enter/Railing? one flight with rails Home Environment Standard Height Toilet,Tub/ Shower Additional Social History Comment Her Daughter lives in [place] she uses CPAP at night M2 PT-IP Current Condition Start: 07/15/22 17:51 Freq: NEEDED Status: Active Protocol: Document 07/15/22 12:30 DLM (Rec: 07/15/22 18:18 DLM [id number]) Physical Therapy Current Condition Current Condition Evaluation Date 07/15/22 Treatment Diagnosis right hip fx, s/p ORIF, impaired gait/mobility Onset Date 07/13/22 M3 PT-IP Subjective Start: 07/15/22 17:51 Freq: NEEDED Status: Active Protocol: Document 07/15/22 12:30 DLM (Rec: 07/15/22 18:18 DLM [id number]) Subjective Physical Therapy Visit Type Type Initial Evaluation Visit Start Time 11:46 Visit Stop Time 12:30 Total Visit Minutes 44 Number of CORD CUTTER Visits 0 Physical Therapy Visit Comments Patient Comments She reports her leg pain is better since surgery Patient Goals She wants to be able to go home Therapy Pain Assessment Pain When Pain Assessed During Mobility Pain Present Pain Present Pain Reported Location right hip Intensity 4 Scale Used Numeric (0 - 10) Description Aching,Tender,With Movement Pain Behaviors Wincing Pain Management Techniques Re-positioning,Timing of Activity with Medications M4 PT-IP Mobility and Gait Start: 07/15/22 17:51 Freq: NEEDED Status: Active Protocol: Document 07/15/22 12:30 DLM (Rec: 07/15/22 18:18 DLM [id number]) PT-Bed Mobility Assessment Supine to Sit Supine to Sit Moderate Assistance,Head of Bed Elevated Scooting Scooting to Edge of Bed Contact Guard Assistance, Minimal Assistance PT-Transfer Assessment Sit to and From Stand Sit to and from Stand Minimal Assistance,2 Person Assistance,Use of Upper Extremities Equipment Transfer Assistive Device Gait Belt,Front Wheeled Walker Transfers Transfer Destination Chair Transfer Technique Stand Step Pivot Transfer Ability Level of Assist Minimal Assistance,Moderate Assistance,2 Person Assistance ,Use of Upper Extremities Comments Mobility Comments Pt sat up on edge of bed then progressed to standing and transfer to the recliner. Pt is inclined to close her eyes often but unable to state why. She is not sleeping nor appear sleepy when she closes her eyes. Pt left sitting up in the recliner for lunch. Gait Assessment Comments Gait Comments not able to progress to more than transfer today PT-Balance Assessment Sitting Balance and Reactions Static Sitting Balance Ability Good Dynamic Sitting Balance Ability Good Standing Balance and Reactions Static Standing Balance Ability Fair Dynamic Standing Balance Ability Fair Device Used FWW M5 PT-IP Objective Assessments Start: 07/15/22 17:51 Freq: NEEDED Status: Active Protocol: Document 07/15/22 12:30 DLM (Rec: 07/15/22 18:18 DLM [id number]) Orientation Orientation/Cognition Level of Alertness Alert Orientation Name,Age,Birthday,Month,Date, Year,Day of Week,Place, Situation Language Function Ability No Deficits Noted Safety Awareness Understands Safety Issues Memory Description No Deficits Noted Comments she is talkative and tangential this visit, she is able to follow verbal instructions Gross Range of Motion Upper Extremity ROM Assessment Within Functional Limits Lower Extremity ROM Assessment Right Impaired Impairments pain limits her hip movements Strength Upper Extremity Strength Assessment Within Functional Limits Lower Extremity Strength Assessment Right Impaired Hip needs assist to move LE in bed Knee seated ext 3-/5 Ankle DF 4/5 Comments Strength Comments post-op pain right hip limits functional use of right LE Coordination Assessment Gross Coordination Gross Coordination WNL Sensation Assessment Sensation Gross Sensation WNL Muscle Tone Muscle Tone WNL Yes M6 PT-IP Treatment Start: 07/15/22 17:51 Freq: NEEDED Status: Active Protocol: Document 07/15/22 12:30 DLM (Rec: 07/15/22 18:18 DLM [id number]) Physical Therapy Treatment Exercises Exercises Ankle Pumps,Seated Knee Flexion/Extension Education Education Provided Weight Bearing Status,Safety M7 PT-IP Assessment and Plan Start: 07/15/22 17:51 Freq: NEEDED Status: Active Protocol: Document 07/15/22 12:30 DLM (Rec: 07/15/22 18:18 DLM [id number]) PT Summary Assessment and Plan Potential Rehabilitation Potential Good Status of Condition at Evaluation Evolving Summary Impairments Pain,ROM,Strength,Balance,Bed Mobility,Transfers,Gait, Activity Tolerance Assessment Summary Radha shows good effort with physical therapy. She intermittently closes her eyes but she can not state why. She does not have her glasses here at the hospital. Pt needing two person assist at this time to manage her fall risk. She was able to progress to transfers to the recliner today. She is not safe to discharge home alone. Recommend SNF rehab at discharge to assist her in her functional recovery s/p hip fracture and ORIF. Goals Bed Mobility Goal Contact Guard Assistance, Minimal Assistance Transfer Goal Contact Guard Assistance, Minimal Assistance Gait Goal Minimal Assistance,Front Wheel Walker Gait Distance 20 feet Days to Meet Goals 7 Frequency of Treatment Frequency Of Treatment Once a Day Treatment Plan Physical Therapy Treatment Plan Bed Mobility Training,Transfer Training,Gait Training, Therapeutic Exercise,Balance Retraining,Post Op Education, Discharge Planning,Hot or Cold Pack,Neuromuscular Re-ed Precautions Other Precautions neurostimulator for bowel incontinence Weight Bearing Status Weight Bearing Status Weight Bear as Tolerated Recommendations To Nursing Amount of Assist Needed 1 Person Assist,2 Person Assist Discharge Recommendations PT Discharge Recommendations SNF Rehab Transportation Needs at Discharge Wheelchair/Cabulance
[2022-07-15] MEDS: INSULIN LISPRO 100 UNIT/ML 3ML VIAL SUBCUT ×2 (12:37→20:15)
--- NOTE | 2022-07-15 12:40 | OT.IP.EVAL ---
Current Diagnoses Fracture of unspecified part of neck of right femur, initial encounter for closed fracture (07/13/22) Surgery Performed Operation Date: 07/14/22 16:30 Actual Procedures p closed reduction/perc pinning hip(Right) - Yang Lizarraga MD Past Medical History (Last Reviewed 07/15/22 @ 08:12 by Sidra Angel PA-C) Anemia in CKD (chronic kidney disease) Chronic kidney disease Chronic kidney disease (CKD) stage G4/A1, severely decreased glomerular filtration rate (GFR) between 15-29 mL/min/1.73 square meter and albuminuria creatinine ratio less than 30 mg/g Diabetes Essential hypertension Gastric neurostimulator device in situ Hearing aid worn History of MRSA infection Hypertensive nephrosclerosis Hyperuricemia Insomnia Iron deficiency anemia Obstructive sleep apnea on CPAP Sleep apnea Surgical History (Last Reviewed 07/15/22 @ 08:12 by Sidra Angel PA-C) History of colon surgery History of myringotomy History of tonsillectomy Occupational Therapy Inpatient Evaluation/Re-Eval M1 PT/OT-IP Prior Functional Status Start: 07/15/22 14:48 Freq: NEEDED Status: Active Protocol: Document 07/15/22 18:51 [facility] (Rec: 07/15/22 19:09 [facility] [id number]) Medical Review Prior Functional Status Medical History Reviewed Yes Diet/Fluid Consistency Regular Communication WFL, wears glasses all the time, chart notes indicate she has hearing aides Mobility and Gait Independent without device, community distances, drives Activities of Daily Living and IADL's Independent Social History Household Members none Living Arrangements Apartment/Condo Number of Floors (Floors) One Floor Number of Stairs To Enter/Railing? one flight with rails Home Environment Standard Height Toilet,Tub/ Shower Additional Social History Comment Her Daughter lives in [place] she uses CPAP at night M2 OT-IP Current Condition Start: 07/15/22 14:48 Freq: Status: Active Protocol: Document 07/15/22 18:51 [facility] (Rec: 07/15/22 19:09 [facility] [id number]) Occupational Therapy Current Condition Current Condition Evaluation Date 07/15/22 Treatment Diagnosis S/p Right femoral neck fx, s/p ORIF Weight Bearing Status Weight Bearing Status Weight Bear as Tolerated M3 OT- IP Subjective and Pain Start: 07/15/22 14:48 Freq: Status: Active Protocol: Document 07/15/22 18:51 [facility] (Rec: 07/15/22 19:09 [facility] [id number]) OT- Subjective Occupational Therapy Visit Type Type Initial Evaluation Visit Start Time 11:46 Visit Stop Time 12:40 Total Visit Minutes 54 Occupational Therapy Visit Comments Patient Comments Pt agreed to get up. Patient/Caregiver Goals To go to skilled rehab prior to going home. OT Pain Assessment Pain When Pain Assessed During Mobility Pain Present Pain Present Pain Reported Location right hip Intensity 4 Scale Used Numeric (0 - 10) M4 OT- IP ADL's Start: 07/15/22 14:48 Freq: Status: Active Protocol: Document 07/15/22 18:51 [facility] (Rec: 07/15/22 19:09 [facility] [id number]) OT ADL-Grooming General Evaluation Grooming Ability Standby Assistance Comments OT Grooming Comments while seated OT ADL-Oral Care General Eval Oral Care Ability Standby Assistance Comments Oral Care Comments set up while seated in the recliner OT ADL-Dressing General Eval Lower Body Dressing Ability Maximum Assistance Comments OT Dressing Comments Assist to gaby socks. OT ADL-Toileting Comments OT Toileting Comments Not performed. OT ADL-Bathing Comments OT Bathing Comments NOt performed M5 OT- IP IADL's Start: 07/15/22 14:48 Freq: Status: Active Protocol: Document 07/15/22 18:51 [facility] (Rec: 07/15/22 19:09 [facility] [id number]) OT-Instrumental Activities of Daily Living Home Safety Awareness Awareness of Need for Assistance at Home Good Awareness M6 OT- IP Functional Cognition Start: 07/15/22 14:48 Freq: Status: Active Protocol: Document 07/15/22 18:51 [facility] (Rec: 07/15/22 19:09 [facility] [id number]) Cognitive Factors Limiting Selfcare Function Cognitive Ability Level of Alertness Alert Patient Orientation Name,Place,Situation Attention Span Ability Capable of Focused Attention, Capable of Sustained Attention Ability to Follow Commands Able to Follow One Step Commands Cognitive Comments Cognitive Assessment Comments Pt able to follow commands for mobility needs and initiated education for ADl needs. OT- Vision and Hearing OT- Hearing Assessment OT- Hearing Assessment WFL OT- Vision Assessment Vision Assessment Comments Pt wears glasse but not in the room. M7 OT- IP Mobility and Balance Start: 07/15/22 14:48 Freq: Status: Active Protocol: Document 07/15/22 18:51 [facility] (Rec: 07/15/22 19:09 [facility] [id number]) OT- Bed Mobility Assessment Supine to Sit Supine to Sit Assist Moderate Assistance,1 Person Assistance OT-Transfer Assessment Sit to and From Stand Sit to and from Stand Moderate Assistance,2 Person Assistance Transfers Transfer Ability Moderate Assistance,2 Person Assistance Technique Transfer Destination Bed,Chair Transfer Technique Stand Step Pivot Devices Transfer Assistive Devices Gait Belt,Front Wheeled Walker Comments Mobility Comments MODA x1 to help get her trunk upright. MODA X 2 to stand to FWW, assist for balance and to help move the FWW. OT- Balance Assessment Sitting Balance and Reactions Static Sitting Balance Ability Fair Standing Balance and Reactions Static Standing Balance Ability Poor Dynamic Standing Balance Ability Poor M8 OT- IP Objective Assessments Start: 07/15/22 14:48 Freq: Status: Active Protocol: Document 07/15/22 18:51 [facility] (Rec: 07/15/22 19:09 [facility] [id number]) OT-Muscle Tone Assessment Muscle Tone WNL Yes M9 OT- IP Assessment and Plan Start: 07/15/22 14:48 Freq: Status: Active Protocol: Document 07/15/22 18:51 [facility] (Rec: 07/15/22 19:09 [facility] [id number]) OT Summary Assessment and Plan Potential Rehabilitation Potential Good Analytic Complexity at Evaluation Low Summary OT Impairments Pain,Balance,Functional Mobility,Grooming,Dressing, Toileting,Bathing,Toilet Transfers,Shower Transfers, Activity Tolerance Progress Towards Goals Progressing Toward Goals Assessment Summary Pt low complexity and main barriers are steps, pain and now needing two person assist for ADL and mobility needs and pt looking to go to skilled rehab when medically stable. Goals Grooming Goal Independent Dressing Goal Independent Toileting Goal Independent Bathing Goal Independent Toilet Transfer Goal Independent Shower Transfer Goal Independent Days to Meet Goals 25 Frequency of Treatment Frequency Of Treatment Once a Day Treatment Plan OT Treatment Plan ADL Training,Functional Mobility,Patient/Family Education,Discharge Planning Other Treatment Recommendations and Next Transfer to [facility] with MODA x1 Treatment Focus Discharge Recommendations OT Discharge Recommendations SNF Rehab Transportation Needs at Discharge Wheelchair/Cabulance
--- NOTE | 2022-07-15 13:32 | CM.DPC ---
Addendum entered by JAY Brennan 07/15/22 15:39: ADD: Sw also spoke to pt and Dtr regarding transport and that BLS would not be covered and would be either private vehicle or private pay w/c van. Dtr hopeful to transport pt via her minivan. BF Addendum entered by JAY Brennan 07/15/22 15:36: ADD: SW met bedside with pt and Dtr and Dtr was hopeful for a closer SNF and reviewed online Medicare.gov and preference is referral to: [facility]- left msg with admissions [facility]- spoke to admissions, they have openings, faxed clinicals to [phone]. SW ran out of time to call other facilities closer to Dtr but Dtr plans to make some calls herself tonight. BF Original Note: DCP SNF Planning: Per Ortho PA, pt tolerated surgery well and to work with PT towards likely need of SNF. Per PT/OT, recommending SNF at d/c at this time. SW received a call from [facility] stating they can accept pt at d/c and SW faxed updated clinicals for review along with [facility] vax status copy and PASRR. SW still waiting to hear from [facility] and [facility] regarding their review. SW met bedside with pt who was sitting up in chair and states her Dtr left but will return around 1500 maybe. SW provided print out of [facility] SNFs and updated pt on acceptance at [facility] and pt currently agreeable and will tell her Dtr when she returns. SW updated that possible d/c tomorrow if medically stable. Plan: SW to follow for plan of d/c to [facility] possibly via Dtr POV if cleared by PT/OT and further review for other [facility] SNFs. JAY Brennan
[2022-07-15] MEDS: SENNOSIDES 8.6 MG TABLET 17.2 MG PO (20:03)
[2022-07-15] MEDS: DORZOLAMIDE 2% OPHTH 10 ML 1 DROPS EYE-BOTH (20:10)
[2022-07-15] MEDS: LATANOPROST 0.005% OPHTH 2.5 ML 1 DROPS EYE-BOTH (20:10)
[2022-07-15] MEDS: BRIMONIDINE 0.2% OPHTH 5 ML 1 DROPS EYE-BOTH (20:10)
[2022-07-16] VITALS (8 sets, daily range): BP systolic 121–174; BP diastolic 58–78; PULSE 61–73; RESP 14–18; TEMP 36.5–37; O2SAT 92–95
[2022-07-16] MEDS: cefTRIAXone 1,000 MG in SODIUM CHLORIDE 0.9% 100 ML 200 MG IV (02:47)
[2022-07-16] MEDS: ACETAMINOPHEN 325 MG TABLET 650 MG PO ×2 (02:52→18:59)
--- NOTE | 2022-07-16 04:12 | PC.NURSE ---
Pt is AxOx4, needs 2 person assistanc and cooperative. VSS, pt c/o pain and recieved PRN Tylenol around 0300 with good effect. Pt is on RA and sats 93%. BG-222 at bedtime and pt recieved 2 units of Lispro. Obrien is draining clear and yellow urine. Continue contact precaution. No other changes.
[2022-07-16 05:41] LABS: Alanine Aminotransferase 15 IU/L (<35); Albumin 3.2 g/dL (3.5-5.0); Albumin Globulin Ratio 1.2 (1.0-2.8); Alkaline Phosphatase 74 U/L (38-126); Aspartate Aminotransferase 23 IU/L (14-36); BUN Creatinine Ratio 18.1 (6-22); Bilirubin Total 0.3 mg/dL (0.2-1.3); Blood Urea Nitrogen 46 mg/dL (7-17); Calcium 8.2 mg/dL (8.4-10.2); Carbon Dioxide 28 mmol/L (22-32); Chloride 102 mmol/L (98-107); Estimated Glomerular Filt Rate 19 mL/min (>60); Globulin 2.6 g/dL (1.7-4.1); Glucose 131 mg/dL (80-110); HEMOLYSIS < 15 (0-50); Magnesium 2.2 mg/dL (1.6-2.3); Potassium 4.1 mmol/L (3.4-5.1); Sodium 137 mmol/L (137-145); Total Protein 5.8 g/dL (6.3-8.2)
--- NOTE | 2022-07-16 07:41 | P.PN_ITS ---
Subjective Subjective Date Patient Seen: 07/16/22 Time Patient Seen: 07:42 Interval history: Patient is doing well this morning. She notes her right hip pain is lon roximately 1 to 3/10. She worked with physical therapy yesterday and was able to transfer to the chair. No significant pain with weight-bearing. Overall she is feeling good and would like to be discharged to SNF once available. Exam Vital Signs (past 8 hours): - 07/16/22 00:00 07/16/22 03:10 Temperature 97.7 F 97.7 F Pulse Rate 73 Respiratory Rate 16 Blood Pressure 123/58 L 153/61 H Pulse Oximetry 93 Oxygen Flow Rate 0 Oxygen Delivery Method Room Air Oxygen Flow Rate 0 Narrative Exam Narrative: Pleasant 81-year-old female, resting comfortably in bed, no acute distress. Right hip dressing is clean, dry, intact. No surrounding erythema, induration, or enrique pus. Bilateral lower extremity: Motor functions are grossly intact, sensation is grossly intact to light touch, calves are soft and nontender to palpation. Objective Labs Result Diagrams: 07/15/22 04:54 07/16/22 04:57 Labs: Laboratory Results - last 24 hr 07/16/22 04:57 Sodium 137 Potassium 4.1 Chloride 102 Carbon Dioxide 28 BUN 46 H Creatinine 2.54 H Estimated GFR 19 L BUN/Creatinine Ratio 18.1 Glucose 131 H Calcium 8.2 L Magnesium 2.2 Total Bilirubin 0.3 AST 23 ALT 15 Alkaline Phosphatase 74 Total Protein 5.8 L Albumin 3.2 L Globulin 2.6 Albumin/Globulin Ratio 1.2 [facility] Medical History Anemia in CKD (chronic kidney disease) Chronic kidney disease Chronic kidney disease (CKD) stage G4/A1, severely decreased glomerular filtration rate (GFR) between 15-29 mL/min/1.73 square meter and albuminuria creatinine ratio less than 30 mg/g Diabetes Essential hypertension Gastric neurostimulator device in situ Hearing aid worn History of MRSA infection Hypertensive nephrosclerosis Hyperuricemia Insomnia Iron deficiency anemia Obstructive sleep apnea on CPAP Sleep apnea Surgical History History of colon surgery History of myringotomy History of tonsillectomy Family History Father CKD (chronic kidney disease) Mother Hypertension Social History household members: none Smoking Status: Never smoker alcohol intake: never Assessment & Plan Post-op Postoperative Procedures: Procedures Operation Date: 07/14/22 16:30 Actual Procedure Side Surgeon p closed reduction/perc pinning hip Right Yang Lizarraga MD Postoperative day: 2 Postoperative status narrative: -stable status post right hip percutaneous pin alisa -history of hypertension, DM, CKD stage 4, being managed by the hospitalist team Postoperative plan narrative: -mobilize with physical therapy -weightbearing as tolerated with front wheel walker or cane -continue with multimodal pain management -DVT prophylaxis per hospitalist team due to her chronic kidney disease -disposition, to be determined by primary team. Likely to SNF when safe -follow-up with orthopedics in 10-14 days postoperatively Quality VTE Deep Vein Thrombosis/Pulmonary Embolism Present on Admission: No
--- NOTE | 2022-07-16 09:21 | P.PN_ITS ---
Subjective Subjective Date Patient Seen: 07/16/22 Time Patient Seen: 09:00 Interval history: Able to work with PT today and walk around with walker. Doing well. Exam Vital Signs (past 8 hours): - 07/16/22 03:10 Temperature 97.7 F Pulse Rate 73 Respiratory Rate 16 Blood Pressure 153/61 H Pulse Oximetry 93 Oxygen Flow Rate 0 Oxygen Delivery Method Room Air Oxygen Flow Rate 0 Narrative Exam Narrative: General: Patient is a well-developed, well-nourished elderly female in no d istress at this time. pain well controlled. HEENT: Normocephalic, atraumatic, extraocular muscles intact, oral pharynx is clear and mucous membranes are moist. Neck is supple and symmetric, trachea is midline, no adenopathy, no thyroid enlargement, nontender, no masses palpated. Negative for JVD Chest: Normal AP diameter and contour without kyphoscoliosis, no nasal flaring, retractions, or tachypneic labored Lungs: Auscultation of all lung lombardo are clear without adventitious sounds, wheezes, rhonchi, or rales. Cardio: S1 & S2 with regular rate and rhythm without murmur, rubs, or gallops, no carotid bruit, no cardiac pulsations present. Abdomen: Soft nontender, negative for organomegaly, or masses. Bowel sounds are present in all 4 quadrants without guarding or rebound, no CVA tenderness. Musculoskeletal: Pain to palpation of right hip. No effusions, cyanosis, clubbing or edema present. intact radial and pedal pulses are normal. Skin: Warm dry and intact without rashes, ulcerations or petechiae. Neuro: Alert and orientated x3, strength is +5/5 in all extremities, sensation to touch intact, no gross deficits noted of cranial nerves. Psych: Patient has a well-kept appearance, appropriate affect, mental status attitude thought context and judgment are appropriate for age. Objective Labs Result Diagrams: 07/15/22 04:54 07/16/22 04:57 Labs: Laboratory Results - last 24 hr 07/16/22 04:57 Sodium 137 Potassium 4.1 Chloride 102 Carbon Dioxide 28 BUN 46 H Creatinine 2.54 H Estimated GFR 19 L BUN/Creatinine Ratio 18.1 Glucose 131 H Calcium 8.2 L Magnesium 2.2 Total Bilirubin 0.3 AST 23 ALT 15 Alkaline Phosphatase 74 Total Protein 5.8 L Albumin 3.2 L Globulin 2.6 Albumin/Globulin Ratio 1.2 [facility] Medical History Anemia in CKD (chronic kidney disease) Chronic kidney disease Chronic kidney disease (CKD) stage G4/A1, severely decreased glomerular filtration rate (GFR) between 15-29 mL/min/1.73 square meter and albuminuria creatinine ratio less than 30 mg/g Diabetes Essential hypertension Gastric neurostimulator device in situ Hearing aid worn History of MRSA infection Hypertensive nephrosclerosis Hyperuricemia Insomnia Iron deficiency anemia Obstructive sleep apnea on CPAP Sleep apnea Surgical History History of colon surgery History of myringotomy History of tonsillectomy Family History Father CKD (chronic kidney disease) Mother Hypertension Social History household members: none Smoking Status: Never smoker alcohol intake: never Assessment & Plan Assessment & Plan narrative: 1. Ground level fall resulting in a pathologic right femoral neck fracture, acute, present on admission -Right hip x-ray demonstrates right femoral neck fracture, underwent hip repair with Dr. 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 Essential hypertension, uncontrolled, acute on chronic, in the setting of hypertensive nephrosclerosis and DONNIE, chronic, present on admission -admit BP 189/86 -continue carvedilol, losartan -hold Lasix 3. 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 Evans her slurry control operator helper know she will be going for surgery, he is aware -Cr improved following surgery 5. Obstructive sleep apnea with CPAP, chronic, present on admission -respiratory consult, to administer CPAP 6. Hyperuremicemia, chronic, present on admission -holding allopurinol 7. Bowel incontinence, with gastro neurostimulator in place, chronic, present on admission -Holding loperamide 8. [id number] type 2 diabetes, chronic, with hyperlipidemia, chronic, present on admission -patient admitted under diabetic protocol, monitor for hypo and hyperglycemia -low-dose sliding scale, Q 6 VS checks while NPO -post surgery resume a.c. HS, low-dose sliding scale -A1c 7.7% -holding patient's Januvia -hold simvastatin 9. UTI, acute, present on admission -obtain Bld cultures x2 before starting rocephin -Rocephin 1g x3 days -Urine cultures with E. coli resistant to quinolones Code status:Full Surrogate decision maker: Adry Floyd Daughter COVID PCR:Negative DVT/VTE prophylaxis: Lovenox Disposition: Likely SNF in 1-2 days. Time Spent With Patient Critical Care time: I spent a total of [] minutes of critical care time on this patient's care today; this time is exclusive of procedural time. Quality VTE Deep Vein Thrombosis/Pulmonary Embolism Present on Admission: No
[2022-07-16] MEDS: calcitrioL 0.25 MCG CAPSULE PO (09:22)
[2022-07-16] MEDS: ENOXAPARIN 30 MG/0.3 ML SYRINGE SUBCUT (09:22)
[2022-07-16] MEDS: DOCUSATE 100 MG CAPSULE PO ×2 (09:23→21:54)
[2022-07-16] MEDS: SITAGLIPTIN 50 MG TABLET 25 MG PO (09:23)
[2022-07-16] MEDS: carvediloL 12.5 MG TABLET 25 MG PO ×2 (09:23→21:55)
[2022-07-16] MEDS: ATORVASTATIN 20 MG TABLET PO (09:24)
[2022-07-16] MEDS: FUROSEMIDE 20 MG TABLET 40 MG PO (09:24)
[2022-07-16] MEDS: LOSARTAN 50 MG TABLET PO (09:24)
[2022-07-16] MEDS: allopurinoL 100 MG TABLET PO (09:25)
[2022-07-16] MEDS: DORZOLAMIDE 2% OPHTH 10 ML 1 DROPS EYE-BOTH ×2 (09:25→21:54)
[2022-07-16] MEDS: OXYCODONE IR 10 MG TABLET PO ×2 (09:25→22:28)
[2022-07-16] MEDS: BRIMONIDINE 0.2% OPHTH 5 ML 1 DROPS EYE-BOTH ×2 (09:25→21:55)
--- NOTE | 2022-07-16 11:59 | PT.IPTN ---
Current Diagnoses Fracture of unspecified part of neck of right femur, initial encounter for closed fracture (07/13/22) Surgery Performed Operation Date: 07/14/22 16:30 Actual Procedures p closed reduction/perc pinning hip(Right) - Yang Lizarraga MD Physical Therapy Treatment Note M2 PT-IP Current Condition Start: 07/15/22 17:51 Freq: NEEDED Status: Active Protocol: Document 07/15/22 12:30 DLM (Rec: 07/15/22 18:18 DLM [id number]) Physical Therapy Current Condition Current Condition Evaluation Date 07/15/22 Treatment Diagnosis right hip fx, s/p ORIF, impaired gait/mobility Onset Date 07/13/22 M3 PT-IP Subjective Start: 07/15/22 17:51 Freq: NEEDED Status: Active Protocol: Document 07/16/22 11:59 AW (Rec: 07/16/22 13:12 AW [id number]) Subjective Physical Therapy Visit Type Type Treatment Note Visit Start Time 11:29 Visit Stop Time 11:59 Total Visit Minutes 30 Notes Pt's son in law was present and encouraging throughout treatment Physical Therapy Visit Comments Patient Comments Pt is willing to participate with PT Patient Goals Understands need for skilled rehab. Therapy Pain Assessment Pain When Pain Assessed During Mobility Pain Present Pain Present Pain Reported Location right hip Intensity 5 Scale Used Numeric (0 - 10) Pain Management Techniques Re-positioning,Timing of Activity with Medications M4 PT-IP Mobility and Gait Start: 07/15/22 17:51 Freq: NEEDED Status: Active Protocol: Document 07/16/22 11:59 AW (Rec: 07/16/22 13:12 AW [id number]) PT-Bed Mobility Assessment Supine to Sit Supine to Sit Minimal Assistance,Moderate Assistance,1 Person Assistance ,Head of Bed Elevated,Bedrails Scooting Scooting to Edge of Bed Contact Guard Assistance, Minimal Assistance PT-Transfer Assessment Sit to and From Stand Sit to and from Stand Minimal Assistance,Moderate Assistance,1 Person Assistance ,Use of Upper Extremities Equipment Transfer Assistive Device Gait Belt,Front Wheeled Walker Transfers Transfer Destination Chair Transfer Technique ambulated with FWW Transfer Ability Level of Assist Minimal Assistance,Moderate Assistance,1 Person Assistance ,Use of Upper Extremities Comments Mobility Comments Pt was able to sit up EOB with some support for her operative leg. In sitting, she complained of mild dizziness. BP 121/58 HR 60 SpO2 94% on room air. With bed height raised a few inches to simulate her bed at home, she stood min A with FWW. She shifted weight laterally and lifted each foot/marched in place with moderate UE weightbearing. With FWW, she walked toward the chair set up 5 feet away and sat with mod A and cues. After sitting rest break, she stood mod A and used FWW to walk 20 feet with her son in law providing chair follow. She tired after 20 feet and needed assist for controlled descent to chair. She was left up in the chair for lunch with call light in reach. Gait Assessment Gait Gait Assistance Required: Moderate Assistance,1 Person Assist Distance (Feet) 20 Able to Maintain Weight Bearing Status Yes During Gait Assistive Devices Assistive Device Straight Cane,Front Wheeled Walker Gait Deviations General Gait Pattern Antalgic,Decreased Stride Length,Decreased Feet Clearance,Flexed Trunk,Step-to Gait Factors Limiting Gait Function Factors Limiting Gait Function Decreased Strength,Limited Range of Motion,Pain,Poor Balance Comments Gait Comments See mobility comments for details. PT-Balance Assessment Sitting Balance and Reactions Static Sitting Balance Ability Fair Dynamic Sitting Balance Ability Good Standing Balance and Reactions Static Standing Balance Ability Poor Dynamic Standing Balance Ability Poor Device Used FWW M5 PT-IP Objective Assessments Start: 07/15/22 17:51 Freq: NEEDED Status: Active Protocol: Document 07/15/22 12:30 DLM (Rec: 07/15/22 18:18 DLM [id number]) Orientation Orientation/Cognition Level of Alertness Alert Orientation Name,Age,Birthday,Month,Date, Year,Day of Week,Place, Situation Language Function Ability No Deficits Noted Safety Awareness Understands Safety Issues Memory Description No Deficits Noted Comments she is talkative and tangential this visit, she is able to follow verbal instructions Gross Range of Motion Upper Extremity ROM Assessment Within Functional Limits Lower Extremity ROM Assessment Right Impaired Impairments pain limits her hip movements Strength Upper Extremity Strength Assessment Within Functional Limits Lower Extremity Strength Assessment Right Impaired Hip needs assist to move LE in bed Knee seated ext 3-/5 Ankle DF 4/5 Comments Strength Comments post-op pain right hip limits functional use of right LE Coordination Assessment Gross Coordination Gross Coordination WNL Sensation Assessment Sensation Gross Sensation WNL Muscle Tone Muscle Tone WNL Yes M6 PT-IP Treatment Start: 07/15/22 17:51 Freq: NEEDED Status: Active Protocol: Document 07/16/22 11:59 AW (Rec: 07/16/22 13:12 AW [id number]) Physical Therapy Treatment Education Education Provided Weight Bearing Status,Safety M7 PT-IP Assessment and Plan Start: 07/15/22 17:51 Freq: NEEDED Status: Active Protocol: Document 07/16/22 11:59 AW (Rec: 07/16/22 13:12 AW [id number]) PT Summary Assessment and Plan Summary Progress Towards Goals Progressing Toward Goals Assessment Summary Radha progressed to gait with FWW today. She needed chair follow for safety but was able to ambulate 20 feet with mod assist. Updated gait goal today in light of her progress. All mobility requires extra time and cues. She is not safe to discharge home alone. Recommend SNF rehab at discharge to assist her in her functional recovery s/p hip fracture and ORIF. Goals Bed Mobility Goal Contact Guard Assistance, Minimal Assistance Transfer Goal Contact Guard Assistance, Minimal Assistance Gait Goal Minimal Assistance,Front Wheel Walker Gait Distance 100 feet Days to Meet Goals 7 Frequency of Treatment Frequency Of Treatment Once a Day Treatment Plan Physical Therapy Treatment Plan Bed Mobility Training,Transfer Training,Gait Training, Therapeutic Exercise,Balance Retraining,Post Op Education, Discharge Planning,Hot or Cold Pack,Neuromuscular Re-ed Precautions Other Precautions neurostimulator for bowel incontinence Weight Bearing Status Weight Bearing Status Weight Bear as Tolerated Recommendations To Nursing Amount of Assist Needed 1 Person Assist,2 Person Assist Discharge Recommendations PT Discharge Recommendations SNF Rehab Transportation Needs at Discharge Wheelchair/Cabulance
[2022-07-16] MEDS: INSULIN LISPRO 100 UNIT/ML 3ML VIAL SUBCUT (12:46)
--- NOTE | 2022-07-16 14:37 | OT.IP.TRT ---
Current Diagnoses Fracture of unspecified part of neck of right femur, initial encounter for closed fracture (07/13/22) Surgery Performed Operation Date: 07/14/22 16:30 Actual Procedures p closed reduction/perc pinning hip(Right) - Yang Lizarraga MD Occupational Therapy Treatment Note M2 OT-IP Current Condition Start: 07/15/22 14:48 Freq: Status: Active Protocol: Document 07/15/22 18:51 [facility] (Rec: 07/15/22 19:09 [facility] [id number]) Occupational Therapy Current Condition Current Condition Evaluation Date 07/15/22 Treatment Diagnosis S/p Right femoral neck fx, s/p ORIF Weight Bearing Status Weight Bearing Status Weight Bear as Tolerated M3 OT- IP Subjective and Pain Start: 07/15/22 14:48 Freq: Status: Active Protocol: Document 07/16/22 14:18 [facility] (Rec: 07/16/22 15:25 [facility] [id number]) OT- Subjective Occupational Therapy Visit Type Type Treatment Note Visit Start Time 14:18 Visit Stop Time 14:37 Total Visit Minutes 19 Occupational Therapy Visit Comments Patient Comments Pt just waking up and very tired at this time. Patient/Caregiver Goals To go to skilled rehab. OT Pain Assessment Pain When Pain Assessed At Rest Pain Present Pain Present Denied Pain M4 OT- IP ADL's Start: 07/15/22 14:48 Freq: Status: Active Protocol: Document 07/15/22 18:51 [facility] (Rec: 07/15/22 19:09 [facility] [id number]) OT ADL-Grooming General Evaluation Grooming Ability Standby Assistance Comments OT Grooming Comments while seated OT ADL-Oral Care General Eval Oral Care Ability Standby Assistance Comments Oral Care Comments set up while seated in the recliner OT ADL-Dressing General Eval Lower Body Dressing Ability Maximum Assistance Comments OT Dressing Comments Assist to gaby socks. OT ADL-Toileting Comments OT Toileting Comments Not performed. OT ADL-Bathing Comments OT Bathing Comments NOt performed M5 OT- IP IADL's Start: 07/15/22 14:48 Freq: Status: Active Protocol: Document 07/15/22 18:51 [facility] (Rec: 07/15/22 19:09 [facility] [id number]) OT-Instrumental Activities of Daily Living Home Safety Awareness Awareness of Need for Assistance at Home Good Awareness M6 OT- IP Functional Cognition Start: 07/15/22 14:48 Freq: Status: Active Protocol: Document 07/15/22 18:51 [facility] (Rec: 07/15/22 19:09 [facility] [id number]) Cognitive Factors Limiting Selfcare Function Cognitive Ability Level of Alertness Alert Patient Orientation Name,Place,Situation Attention Span Ability Capable of Focused Attention, Capable of Sustained Attention Ability to Follow Commands Able to Follow One Step Commands Cognitive Comments Cognitive Assessment Comments Pt able to follow commands fo rmobility need and initiated education for ADl needs. OT- Vision and Hearing OT- Hearing Assessment OT- Hearing Assessment WFL OT- Vision Assessment Vision Assessment Comments Pt wears glasse but not in the room. M7 OT- IP Mobility and Balance Start: 07/15/22 14:48 Freq: Status: Active Protocol: Document 07/16/22 14:18 [facility] (Rec: 07/16/22 15:25 [facility] [id number]) OT-Transfer Assessment Comments Mobility Comments Spoke at length with pt and called pt's son regarding the minivan that they plan on using to bring his mother to [facility] for therapy. Able to have her son try on the minivan to determine that the front seat will be more appropriate to get into and out of by backing the front seat all the way back. Pt bebeto have to una forwrads so able to get her bottom on the seat and then turn her trunk and get each leg into the car with assist. Also suggested a trash bag on the seat may also help her to slide on the seat . M8 OT- IP Objective Assessments Start: 07/15/22 14:48 Freq: Status: Active Protocol: Document 07/15/22 18:51 [facility] (Rec: 07/15/22 19:09 [facility] [id number]) OT-Muscle Tone Assessment Muscle Tone WNL Yes M9 OT- IP Assessment and Plan Start: 07/15/22 14:48 Freq: Status: Active Protocol: Document 07/16/22 14:18 [facility] (Rec: 07/16/22 15:25 [facility] [id number]) OT Summary Assessment and Plan Potential Rehabilitation Potential Good Analytic Complexity at Evaluation Low Summary OT Impairments Pain,Balance,Functional Mobility,Grooming,Dressing, Toileting,Bathing,Toilet Transfers,Shower Transfers, Activity Tolerance Progress Towards Goals Progressing Toward Goals Assessment Summary Pt looking to go to skilled rehab tomorrow and able to talk to pt's son regarding proper height and how to assist to get pt into and out of the car as family to transport pt to skilled rehab. Goals Grooming Goal Independent Dressing Goal Independent Toileting Goal Independent Bathing Goal Independent Toilet Transfer Goal Independent Shower Transfer Goal Independent Days to Meet Goals 24 Frequency of Treatment Frequency Of Treatment Once a Day Treatment Plan OT Treatment Plan ADL Training,Functional Mobility,Patient/Family Education,Discharge Planning Discharge Recommendations OT Discharge Recommendations SNF Rehab Transportation Needs at Discharge Private Vehicle
--- NOTE | 2022-07-16 15:21 | CM.DPNOTE ---
Addendum entered by JAY Hamilton 07/16/22 15:28: ADD: In the case a back up SNF is needed: [facility] ([place]) also accepted P# [phone] DONTE Original Note: DCP Update [place] [facility]- [facility], has been secured for admission tomorrow 07.17.22 Transport via family van, estimated time of departure 1100 Faxed completed [facility] and requested clinical to Raquel in admissions throughout the day Contact: Raquel in admissions P# [phone] F# [phone] Patient and family aware and agreeable. COVID PCR being updated this evening, RAQUEL Olsen aware JW
[2022-07-16 16:09] LABS: COVID19 -Nasal RAPID Negative (Negative)
[2022-07-16] MEDS: MAGNESIUM HYDROXIDE 30 ML UDC PO (21:54)
[2022-07-16] MEDS: SENNOSIDES 8.6 MG TABLET 17.2 MG PO (21:54)
[2022-07-16] MEDS: LATANOPROST 0.005% OPHTH 2.5 ML 1 DROPS EYE-BOTH (21:55)
[2022-07-17 02:36] VITALS: PULSE 85; RESP 16; O2SAT 95
[2022-07-17] MEDS: OXYCODONE IR 10 MG TABLET PO ×2 (02:43→10:40)
[2022-07-17 02:45] VITALS: BP 130/81; PULSE 61; RESP 16; TEMP 36.3; O2SAT 95
--- NOTE | 2022-07-17 07:50 | PM.PNPO.1 ---
Subjective Subjective Date Patient Seen: 07/17/22 Time Patient Seen: 07:50 Interval history: Patient is complaining of mild right hip pain, her main complaint is her right knee. She is been working with physical therapy. Overall much improved. Exam Vital Signs (past 8 hours): - 07/17/22 02:36 07/17/22 02:45 Temperature 97.4 F L Pulse Rate 85 61 Respiratory Rate 16 16 Blood Pressure 130/81 Pulse Oximetry 95 95 Oxygen Delivery Method CPAP Oxygen Flow Rate 0 Oxygen Delivery Method CPAP Oxygen Flow Rate 0 Narrative Exam Narrative: Pleasant 81-year-old female, resting comfortably in bed, no acute distress. Right hip dressing is clean, dry, intact. No surrounding erythema, induration, or enrique pus. Bilateral lower extremity: Motor functions are grossly intact, sensation is grossly intact to light touch. Right knee exam: She is tender palpation over the medial joint line, draped leg raise is intact, no excessive pain with passive range of motion, no ligamentous instability noted. Bilateral calves are soft and nontender to palpation. Objective Labs Result Diagrams: 07/15/22 04:54 07/16/22 04:57 Labs: Laboratory Results - last 24 hr 07/16/22 15:20 SARS-CoV-2 (PCR) Negative [facility] Medical History Anemia in CKD (chronic kidney disease) Chronic kidney disease Chronic kidney disease (CKD) stage G4/A1, severely decreased glomerular filtration rate (GFR) between 15-29 mL/min/1.73 square meter and albuminuria creatinine ratio less than 30 mg/g Diabetes Essential hypertension Gastric neurostimulator device in situ Hearing aid worn History of MRSA infection Hypertensive nephrosclerosis Hyperuricemia Insomnia Iron deficiency anemia Obstructive sleep apnea on CPAP Sleep apnea Surgical History History of colon surgery History of myringotomy History of tonsillectomy Family History Father CKD (chronic kidney disease) Mother Hypertension Social History household members: none Smoking Status: Never smoker alcohol intake: never Assessment & Plan Post-op Postoperative Procedures: Procedures Operation Date: 07/14/22 16:30 Actual Procedure Side Surgeon p closed reduction/perc pinning hip Right Yang Lizarraga MD Postoperative day: 3 Postoperative status: doing well Postoperative status narrative: -stable status post right hip percutaneous pinning -right knee pain/contusion -history of hypertension, DM, CKD stage 4, being managed by the hospitalist team Postoperative plan: routine post-op care Postoperative plan narrative: -mobilize with physical therapy -weightbearing as tolerated with front wheel walker or cane -continue with multimodal pain management -DVT prophylaxis per hospitalist team due to her chronic kidney disease, typically for 6 weeks postop. -disposition, to be determined by primary team. Likely to SNF when safe -follow-up with orthopedics in 10-14 days postoperatively -orthopedics to sign off at this point, please not hesitate to re-consult with any further questions or concerns. Quality VTE Deep Vein Thrombosis/Pulmonary Embolism Present on Admission: No
[2022-07-17] MEDS: INSULIN LISPRO 100 UNIT/ML 3ML VIAL SUBCUT (08:38)
[2022-07-17] MEDS: BRIMONIDINE 0.2% OPHTH 5 ML 1 DROPS EYE-BOTH (08:38)
[2022-07-17 08:39] VITALS: BP 130/81; PULSE 72
[2022-07-17] MEDS: calcitrioL 0.25 MCG CAPSULE PO (08:39)
[2022-07-17] MEDS: ATORVASTATIN 20 MG TABLET PO (08:39)
[2022-07-17] MEDS: SITAGLIPTIN 50 MG TABLET 25 MG PO (08:39)
[2022-07-17] MEDS: carvediloL 12.5 MG TABLET 25 MG PO (08:39)
[2022-07-17 08:40] VITALS: BP 131/81; PULSE 72
[2022-07-17] MEDS: LOSARTAN 50 MG TABLET PO (08:40)
[2022-07-17] MEDS: FUROSEMIDE 20 MG TABLET 40 MG PO (08:40)
[2022-07-17] MEDS: ENOXAPARIN 30 MG/0.3 ML SYRINGE SUBCUT (08:40)
[2022-07-17] MEDS: DORZOLAMIDE 2% OPHTH 10 ML 1 DROPS EYE-BOTH (08:40)
[2022-07-17] MEDS: allopurinoL 100 MG TABLET PO (08:41)
[2022-07-17] MEDS: ACETAMINOPHEN 325 MG TABLET 650 MG PO (08:41)
[2022-07-17] MEDS: DOCUSATE 100 MG CAPSULE PO (08:41)
--- NOTE | 2022-07-17 10:44 | PM.DS.1 ---
History of Present Illness History of Present Illness Date Patient Seen: 07/17/22 Time Patient Seen: 10:44 Chief complaint: GLF- ? right hip fx Narrative: Radha Earl is a 81-year-old female with a history of essential hypertension, hypertensive nephrosclerosis, CKD G4/A1, with mineral bone disease, insomnia, iron deficiency anemia of CKD, hyperuremicemia, ZINA with CPAP, history of MRSA, bowel incontinence with InterStim neurostimulator implanted, who presented to the ED today after getting up out of a chair finding that her legs had fallen asleep and collapsed to the floor falling impacting her right knee and hip resulting in a right femoral neck fracture.? Patient is on no anticoagulation therapy.? Patient denies hitting her head or loss of consciousness with fall, headache, changes in vision, weakness, numbness, tingling, chest pain, shortness breath, abdominal pain, nausea, vomiting, fever, body aches, chills, urinary frequency, urgency, dysuria, frequent falls, skin wounds or infections, recent changes to her medication, recent illness injury or trauma that otherwise stated above. Admit vitals temp 98?, BP 189/86, HR 62, R 22, O2 saturation 97% on room air.? Patient HGB 11.4, HCT 33.1, sodium 135, chloride 95, BUN 75, creatinine 2.85, glucose 123, GFR 16, (review of nephrology notes show baseline creatinine 2.34, GFR 19), patient's liver panel WNL, COVID is negative, right knee x-ray is negative for any acute processes or fracture, right hip x-ray demonstrates right femoral neck fracture.? Dr. Lizarraga was consulted in ED. Patient admitted for right femoral neck fracture. Discharge Providers Provider Date of admission: 07/13/22 20:57 Discharge Date: 07/17/22 Primary care physician: JENNIFER Thrasher Consults: 07/13/22 21:16 Consult to Dietitian, Adult Routine Comment: Reason For Exam: fx b,i 28 07/13/22 21:17 Consult to Physician Routine Comment: Consulting Provider: Yang Lizarraga Reason for consultation: femur fx Has provider been notified: Yes 07/13/22 21:25 Consult to Respiratory Therapy Evaluate & Treat Comment: Cpap-ZINA Physician Instructions: Evaluate and treat 07/14/22 18:28 Consult to Discharge Planning Routine Comment: Consult to Physical Therapy Evaluate & Treat Comment: Physician Instructions: Evaluate and Treat 07/15/22 09:00 Consult to Discharge Planning Routine Comment: Consult to Occupational Therapy Evaluate & Treat Comment: Physician Instructions: Evaluate and treat Consult to Physical Therapy Evaluate & Treat Comment: Physician Instructions: Evaluate and Treat Discharge provider: Edson Orr DO Summary Hospital Course Discharge Diagnosis: 1. Ground level fall resulting in a pathologic right femoral neck fracture, acute, present on admission -Right hip x-ray demonstrates right femoral neck fracture, underwent hip repair with Dr. Elham diaz on 07/14 -patient has mineral bone disease secondary to CKD G4/A1 -pain control:? oxycodone, ice, Voltaren, lidocaine patch as needed -MRSA screen positive -PT/OT eval rec SNF 2. Essential hypertension, uncontrolled, acute on chronic, in the setting of hypertensive nephrosclerosis and DONNIE, chronic, present on admission -admit BP 189/86 -continue carvedilol, losartan -hold Lasix? 3. 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 Obstructive sleep apnea with CPAP, chronic, present on admission -respiratory consult, to administer CPAP 6. Hyperuremicemia, chronic, present on admission -holding allopurinol 7. Bowel incontinence, with gastro neurostimulator in place, chronic, present on admission -Holding loperamide 8. Fis-vjdfpfy-naiojlcbr type 2 diabetes, chronic, with hyperlipidemia, chronic,? present on admission -patient admitted under diabetic protocol, monitor for hypo and hyperglycemia -low-dose sliding scale, Q 6 VS checks while NPO -post surgery resume a.c. HS, low-dose sliding scale -A1c 7.7% -holding patient's Januvia -hold simvastatin 9. UTI, acute, present on admission -Rocephin 1g x3 days -Urine cultures with E. coli resistant to quinolones -blood cultures negative Hospital Course: Admitted for fall at home resulting in hip fracture which was repaired by ortho. PT/OT rec SNF following surgery. Has CKD stage 4 and Cr remained stable while admitted. Placed on lovenox for 6 weeks and will f/u with ortho in 2 weeks in clinic. Also found to have UTI with E. coli only resistant to quinolones. Recieved 3 days of IV rocephin for this. Time Spent with Patient Time spent: Greater than 30 minutes Exam Vital Signs (past 8 hours): - 07/17/22 02:45 07/17/22 08:39 07/17/22 08:40 Temperature 97.4 F L Pulse Rate 61 72 72 Respiratory Rate 16 Blood Pressure 130/81 130/81 131/81 Pulse Oximetry 95 Oxygen Flow Rate 0 Oxygen Delivery Method CPAP Oxygen Flow Rate 0 Narrative Exam Narrative: General: Patient is a well-developed, well-nourished elderly female in no distress at this time. pain well controlled. HEENT: Normocephalic, atraumatic, extraocular muscles intact, oral pharynx is clear and mucous membranes are moist. Neck is supple and symmetric, trachea is midline, no adenopathy, no thyroid enlargement, nontender, no masses palpated. Negative for JVD Chest: Normal AP diameter and contour without kyphoscoliosis, no nasal flaring, retractions, or tachypneic labored Lungs: Auscultation of all lung lombardo are clear without adventitious sounds, wheezes, rhonchi, or rales. Cardio: S1 & S2 with regular rate and rhythm without murmur, rubs, or gallops, no carotid bruit, no cardiac pulsations present. Abdomen: Soft nontender, negative for organomegaly, or masses. Bowel sounds are present in all 4 quadrants without guarding or rebound, no CVA tenderness. Musculoskeletal: Pain to palpation of right hip. No effusions, cyanosis, clubbing or edema present. intact radial and pedal pulses are normal. Skin: Warm dry and intact without rashes, ulcerations or petechiae. Neuro: Alert and orientated x3, strength is +5/5 in all extremities, sensation to touch intact, no gross deficits noted of cranial nerves. Psych: Patient has a well-kept appearance, appropriate affect, mental status attitude thought context and judgment are appropriate for age. Objective Labs Result Diagrams: 07/15/22 04:54 07/16/22 04:57 Labs: Laboratory Results - last 24 hr 07/16/22 15:20 SARS-CoV-2 (PCR) Negative [facility] Medical History Anemia in CKD (chronic kidney disease) Chronic kidney disease Chronic kidney disease (CKD) stage G4/A1, severely decreased glomerular filtration rate (GFR) between 15-29 mL/min/1.73 square meter and albuminuria creatinine ratio less than 30 mg/g Diabetes Essential hypertension Gastric neurostimulator device in situ Hearing aid worn History of MRSA infection Hypertensive nephrosclerosis Hyperuricemia Insomnia Iron deficiency anemia Obstructive sleep apnea on CPAP Sleep apnea Surgical History History of colon surgery History of myringotomy History of tonsillectomy Family History Father CKD (chronic kidney disease) Mother Hypertension Social History household members: none Smoking Status: Never smoker alcohol intake: never Discharge Plan Discharge Plan Patient Disposition: SNF Discharge orders & Medications Prescriptions: New enoxaparin [Lovenox] 30 mg/0.3 mL Syringe 30 mg SUBCUT DAILY 42 Days Qty: 3 0RF polyethylene glycol 3350 17 gram Powder In Packet 17 g PO DAILY PRN (Reason: Constipation) Qty: 14 0RF oxycodone 10 mg Tablet 10 mg PO Q4H PRN (Reason: Pain, Moderate (4-6)) Qty: 20 0RF sennosides [senna] 8.6 mg Tablet 17.2 mg PO BEDTIME Qty: 30 0RF Continued Januvia 25 mg tablet 25 mg PO DAILY Rx Instructions: pt hasn't started this medication yet allopurinol 100 mg tablet 100 mg PO DAILY Label Comments: TAKE ONE(1) TABLET BY MOUTH ONCE DAILY brimonidine 0.2 % drops 1 drp EYE-BOTH BID Label Comments: PLACE ONE(1) DROP INTO EACH EYE TWO(2) TIMES A DAY calcitriol 0.25 mcg capsule 0.25 mcg PO DAILY Label Comments: TAKE ONE(1) CAPSULE BY MOUTH ONCE DAILY DOSE CHANGE 01/13/22 carvedilol 25 mg tablet 25 mg PO BID Label Comments: TAKE ONE(1) TABLET BY MOUTH TWO(2) TIMES DAILY WITH MEALS dorzolamide 2 % drops 1 drp EYE-BOTH BID Label Comments: PLACE ONE(1) DROP IN EACH EYE TWO(2) TIMES A DAY furosemide 20 mg tablet 40 mg PO DAILY Label Comments: TAKE TWO(2) TABLETS BY MOUTH ONCE DAILY latanoprost 0.005 % drops 1 drp EYE-BOTH BEDTIME Label Comments: PLACE ONE(1) DROP IN EACH EYE ONCE NIGHTLY loperamide 2 mg capsule 2 mg PO Q6H PRN (Reason: Diarrhea) Label Comments: TAKE ONE(1) CAPSULE BY MOUTH EVERY SIX(6) HOURS NEEDED FOR DIARRHEA. losartan 50 mg tablet 50 mg PO DAILY Label Comments: TAKE ONE(1) TABLET BY MOUTH ONCE DAILY simvastatin 40 mg tablet 40 mg PO DAILY Label Comments: TAKE ONE(1) TABLET BY MOUTH ONCE DAILY Follow up/Referrals: Dotty Walters ARNP [Primary Care Provider] - 1 Week Yang Lizarraga MD [Physician] - (10-14 days for postoperative visit) Diet/Activity/Treatments Other treatments: Dressing/Wound care: -Keep dressing in place until postoperative follow-up office visit. -Okay to shower. Keep wound out of direct water stream. No soaking or submerging until all the scabs fall off (approximately 6 weeks). -No lotions, ointments, or scar creams directly to the incision until the wound is healed (4-6 weeks), -Please call the office if dressing becomes wet, soiled, or saturated. Activities: -Weight-bearing as tolerated. Use front wheeled walker, and progress to cane when safe. -Continue with home exercises as directed by your physical therapist. -Elevate ?toes above the nose if you have significant swelling in your lower leg. (A wedge pillow is easiest.) -Ice your incision as needed for pain/inflammation/swelling. Protect your skin with a folded pillowcase. Follow-up: -Follow-up with your surgeon or PA in the office in 10-14 days after surgery. -Follow-up with your surgeon 6 weeks postoperatively. Call the office if you have chest pain, shortness of breath, significant swelling that will not resolve with elevating, fever over 101?, significantly worsening pain, or are concerned you might need to go to the Emergency Room. [facility]: [phone] Skin/Wound/Dressing Care Report to your healthcare provider any signs of infection, such as:: chills, fever, night sweats, unusual drainage and unusual redness Visit Report/Discharge Packet Instructions: DI for Open Reduction Internal Fixation Surgery Stand Alone Forms: Surgery Discharge Discharge Data Primary Care Provider: Dotty Walters VTE Deep Vein Thrombosis/Pulmonary Embolism Present on Admission: No
== END 2022-07-17 11:40 | DRG 481 ==
LOC: ED 20:10 → AC 20:58
PROVIDERS: Orthopaedic Surgery; Student in an Organized Health Care Education/Training Program; Admitting Provider Nurse Practitioner Family; Emergency Provider Emergency Medicine; PCP Nurse Practitioner Family; Referring Provider Emergency Medicine; Visit Provider Nurse Practitioner Family
PROC: 0QS634Z Reposition Right Upper Femur with Internal Fixation Device, Percutaneous Approach (ICD-10-PCS; principal; 2022-07-14 16:30)
DX: M84.651A Pathological fracture in other disease, right femur, initial encounter for fracture (principal); N18.4 Chronic kidney disease, stage 4 (severe); N39.0 Urinary tract infection, site not specified; Z16.23 Resistance to quinolones and fluoroquinolones; E79.0 Hyperuricemia without signs of inflammatory arthritis and tophaceous disease; I12.9 Hypertensive chronic kidney disease with stage 1 through stage 4 chronic kidney disease, or unspecified chronic kidney disease; E11.22 Type 2 diabetes mellitus with diabetic chronic kidney disease; D63.1 Anemia in chronic kidney disease; G47.33 Obstructive sleep apnea (adult) (pediatric); B96.20 Unspecified Escherichia coli [E. coli] as the cause of diseases classified elsewhere; M89.8X9 Other specified disorders of bone, unspecified site; R15.9 Full incontinence of feces; E78.5 Hyperlipidemia, unspecified; Z20.822 Contact with and (suspected) exposure to COVID-19; Z79.84 Long term (current) use of oral hypoglycemic drugs
CPT/HCPCS: 36415; 73502; 73560; 76000; 80048; 80053; 81001; 82962; 83036; 83735; 85025; 85027; 85610; 87040; 87077; 87086; 87186; 87635; 87797; 94660; 94762; 96374; 96375; 97116; 97162; 97165; 97530; 99285; C9803; J0690; J0696; J1650; J1815; J2270; J2405; J2704; J2765; J3010; J3360

== ENCOUNTER → 2023-06-15 12:41 | Outpatient (CLI) | payer MEDICARE, OTHER, SELFPAY ==
[2022-07-13 21:30] VITALS: BMI 26.6
--- NOTE | 2023-06-15 | DI.MG.S_ITS ---
BILATERAL DIGITAL SCREENING MAMMOGRAM 3D/2D WITH CAD: 06/15/2023 CLINICAL: Routine screening. Comparison is made to exams dated: 04/08/2022 mammogram, 03/13/2021 mammogram, and 03/07/2020 mammogram - [facility]. There are scattered areas of fibroglandular density in both breasts (category b / 25%-50% glandular tissue). Current study was also evaluated with a Computer Aided Detection (CAD) system. There is a benign mass in the right breast. There also are benign vascular calcifications in both breasts. There are mole markers on the right breast. No significant masses, calcifications, or other findings are seen in either breast. There has been no significant interval change. IMPRESSION: BENIGN There is no mammographic evidence of malignancy. A 1 year screening mammogram is recommended. Based on the Tyrer Cuzick model (a risk assessment model) the patient's lifetime risk is 1.7% and her 10 year risk is 0.0%. According to the ACR, ACS, and NCCN guidelines, an annual breast MRI exam along with mammogram is recommended if the patient's lifetime risk is 20% or greater. This exam was interpreted at Station ID: [id number]. NOTE: For mammograms, a report in lay terms will be sent to the patient. Approximately 15% of breast malignancies will not be visualized mammographically. In the management of a palpable breast mass, a negative mammogram must not discourage biopsy of a clinically suspicious lesion. Electronically Signed By: Irene boyle/sia:06/15/2023 16:39:04 letter sent: Normal Exam ACR BI-RADS Category 2: Benign Finding(s) 3342F
== END ==
PROVIDERS: PCP Nurse Practitioner Family; Referring Provider Nurse Practitioner Family; Visit Provider Nurse Practitioner Family
DX: Z12.31 Encounter for screening mammogram for malignant neoplasm of breast (principal)
CPT/HCPCS: 77063; 77067

== ENCOUNTER → 2024-07-19 11:56 | Outpatient (CLI) | payer MEDICARE, OTHER, SELFPAY ==
[2022-07-13 21:30] VITALS: BMI 26.6
--- NOTE | 2024-07-19 11:57 | DI.MG.S_ITS ---
BILATERAL DIGITAL SCREENING MAMMOGRAM 3D/2D WITH CAD: 07/19/2024 CLINICAL: Routine screening. Comparison is made to exams dated: 04/08/2022 mammogram, 03/13/2021 mammogram, 03/07/2020 mammogram, 06/15/2023 mammogram, 02/23/2019 mammogram, and 02/02/2018 mammogram - [facility]. There are scattered areas of fibroglandular density (category b / 25%-50% glandular tissue). Current study was also evaluated with a Computer Aided Detection (CAD) system. No significant masses, calcifications, or other findings are seen in either breast. There has been no significant interval change. IMPRESSION: NEGATIVE There is no mammographic evidence of malignancy. A 1 year screening mammogram is recommended. Based on the Tyrer Cuzick model (a risk assessment model) the patient's lifetime risk is 0.8% and her 10 year risk is 0.0%. According to the ACR, ACS, and NCCN guidelines, an annual breast MRI exam along with mammogram is recommended if the patient's lifetime risk is 20% or greater. This exam was interpreted at Station ID: [id number]. NOTE: For mammograms, a report in lay terms will be sent to the patient. Approximately 15% of breast malignancies will not be visualized mammographically. In the management of a palpable breast mass, a negative mammogram must not discourage biopsy of a clinically suspicious lesion. Electronically Signed By: Noreen Villavicencio M.D., Ph.D. brian/sia:07/19/2024 15:28:37 letter sent: Normal Exam ACR BI-RADS Category 1: Negative
== END ==
PROVIDERS: PCP Nurse Practitioner Family; Referring Provider Nurse Practitioner Family; Visit Provider Nurse Practitioner Family
DX: Z12.31 Encounter for screening mammogram for malignant neoplasm of breast (principal)
CPT/HCPCS: 77063; 77067

== ENCOUNTER → 2025-08-25 09:30 | Outpatient (CLI) | payer MEDICARE, SELFPAY ==
[2022-07-13 21:30] VITALS: BMI 26.6
--- NOTE | 2025-08-25 09:33 | DI.MG.S_ITS ---
MM screening mammo BI: 08/25/2025. BI-RADS: 1 CLINICAL: 84-year old female for bilateral screening mammogram. Tyrer-Cuzick lifetime risk of 0.5%. No personal or first-degree family history of breast cancer. PRIOR EXAMS 07/19/2024, 06/15/2023, 04/08/2022, 03/13/2021. MAMMOGRAPHY TECHNIQUE: 2D and 3D (tomosynthesis) digital mammographic views obtained, with additional images as needed for full coverage. Current study was also evaluated with a Computer Aided Detection (CAD) system. DENSITY B. There are scattered areas of fibroglandular density. MAMMOGRAPHY FINDINGS Bilateral: No suspicious mass, asymmetry, microcalcification, or other abnormality seen. IMPRESSION: * No evidence of malignancy. RECOMMENDATIONS Bilateral * Annual screening mammography. OVERALL ASSESSMENT CATEGORY BI-RADS-1: Negative. The [employer] recommends annual screening mammography beginning at age 40 for women with average risk of breast cancer. ELECTRONICALLY SIGNED: Awa Pastrana M.D. on 08/27/2025 at 08:27:53 AM PT Interpreting Station ID: [id number]
== END ==
PROVIDERS: PCP Nurse Practitioner Family; Referring Provider Nurse Practitioner Family; Visit Provider Nurse Practitioner Family
DX: Z12.31 Encounter for screening mammogram for malignant neoplasm of breast (principal)
CPT/HCPCS: 77063; 77067